=== PATIENT | female | born 1990 | race Caucasian/White ===

== ENCOUNTER 2018-01-26 23:07 | Inpatient (IN) | payer OTHER ==
[~2018-01-26 23:07] MED LIST: Bupivacaine 0.25% 10 ML SDV ONE
[2018-01-26] MEDS ORDERED: Lactated Ringers 1,000 ML ONE (23:10)
[2018-01-26] MEDS: Lactated Ringers 1,000 ML IV SCH ×2 (23:15→23:55)
[2018-01-26] MEDS ORDERED: fentaNYL 100 MCG/2 ML SDV ONE (23:25)
[2018-01-26] MEDS ORDERED: Nalbuphine 20 MG/1 ML Amp IVPUSH PRN (23:28)
[2018-01-26] MEDS ORDERED: Sodium Chloride 0.9% 10 ML Syringe FLUSH PRN (23:28)
[2018-01-26] MEDS ORDERED: Ampicillin 2 GM in Sodium Chloride 0.9% 100 ML IV ONE (23:28)
[2018-01-26] MEDS ORDERED: Ondansetron 4 MG/2 ML SDV IVPUSH PRN ×2 (23:28→23:44)
[2018-01-26] MEDS ORDERED: Oxytocin/Lactated Ringers 10 UNIT/1,000 ML BAG IV SCH (23:30)
[2018-01-26] MEDS ORDERED: ePHEDrine 50 MG/ML SDV IVPUSH PRN (23:44)
[2018-01-26] MEDS ORDERED: diphenhydrAMINE 50 MG/ML SDV IVPUSH PRN (23:44)
[2018-01-26] MEDS ORDERED: fentaNYL 100 MCG/2 ML SDV EPIDUR PRN (23:44)
[2018-01-26] MEDS ORDERED: Bupivacaine/fentaNYL/NS 100 ML Bag EPIDUR SCH (23:45)
[2018-01-27] MEDS ORDERED: Lidocaine 1% 50 ML MDV ONE (00:09)
[2018-01-27] MEDS ORDERED: Lidocaine 1% 10 ML MDV INJECT ONE (00:14)
[2018-01-27] MEDS ORDERED: Carboprost Tromethamine 250 MCG/1 ML Amp ONE (00:18)
--- NOTE | 2018-01-27 00:20 | PCM.PREANE ---
Preanesthetic Assessment - Procedure Proposed Procedure: Epidural - Anesthesia/Transfusion/Family Hx Anesthesia History: Prior Anesthesia Without Reaction Family History of Anesthesia Reaction: No Transfusion History: No Prior Transfusion(s) - Review of Systems General: No Symptoms Pulmonary: No Symptoms Cardiovascular: No Symptoms Gastrointestinal: No Symptoms Neurological: No Symptoms Other: Reports: None - Physical Assessment O2 Sat by Pulse Oximetry: 98 Respiratory Rate: 17 Vital Signs: Last Vital Signs Temp 36.6 C 01/26/18 23:28 Pulse 71 01/26/18 23:28 Resp 17 01/26/18 23:28 BP 141/88 H 01/26/18 23:28 Pulse Ox Height: 1.65 m Weight: 68.946 kg ASA Class: 2 Mental Status: Alert & Oriented x3 Airway Class: Mallampati = 1 Dentition: Reports: Normal Dentition Thyro-Mental Finger Breadths: 3 Mouth Opening Finger Breadths: 3 ROM/Head Extension: Full Lungs: Clear to Auscultation, Normal Respiratory Effort Cardiovascular: Regular Rate, Regular Rhythm - Lab Values: Laboratory Last Values WBC 12.22 K/mm3 (3.98-10.04) H 01/26/18 23:28 RBC 3.90 M/mm3 (3.98-5.22) L 01/26/18 23:28 Hgb 12.3 gm/L (11.2-15.7) 01/26/18 23:28 Hct 35.4 % (34.1-44.9) 01/26/18 23:28 MCV 90.8 fl (79.4-94.8) 01/26/18 23: MCH 31.5 pg (25.6-32.2) 01/26/18 23: MCHC 34.7 g/dl (32.2-35.5) 01/26/18 23:28 RDW Std Deviation 39.5 fL (36.4-46.3) 01/26/18 23: Plt Count 177 K/mm3 (182-369) L 01/26/18 23:28 MPV 11.6 fl (9.4-12.3) 01/26/18 23:28 Neut % (Auto) 66.8 % (34.0-71.1) 01/26/18 23: Lymph % (Auto) 22.8 % (19.3-51.7) 01/26/18 23:28 [place] % (Auto) 9.5 % (4.7-12.5) 01/26/18 23:28 Eos % (Auto) 0.4 (0.7-5.8) L 01/26/18 23:28 Baso % (Auto) 0.2 % (0.1-1.2) 01/26/18 23:28 Neut # (Auto) 8.16 K/mm3 (1.56-6.13) H 01/26/18 23:28 Lymph # (Auto) 2.79 K/mm3 (1.18-3.74) 01/26/18 23:28 [place] # (Auto) 1.16 K/mm3 (0.24-0.36) H 01/26/18 23:28 Eos # (Auto) 0.05 K/mm3 (0.04-0.36) 01/26/18 23:28 Baso # (Auto) 0.02 K/mm3 (0.01-0.08) 01/26/18 23:28 - Allergies Allergies/Adverse Reactions: Allergies Allergy/AdvReac Type Severity Reaction Status Date / Time ibuprofen Allergy Joint Verified 01/26/18 23:25 Pain/swelling - Acknowledgements Anesthesia Type Planned: Epidural Pt an Appropriate Candidate for the Planned Anesthesia: Yes Alternatives and Risks of Anesthesia Discussed w Pt/Guardian: Yes Pt/Guardian Understands and Agrees with Anesthesia Plan: Yes PreAnesthesia Questionnaire - Past Health History Medical/Surgical History: Denies Medical/Surgical History Respiratory History: Reports: Asthma, Other (See Below) Other Respiratory History: pt states she has a hx of asthma but has not used an inhaler for years [employer] History: Reports: - Infectious Disease History Infectious Disease History: Reports: Chicken Pox - SUBSTANCE USE Smoking Status *Q: Never Smoker Tobacco Use Within Last Twelve Months: No Second Hand Smoke Exposure: No Days Per Week of Alcohol Use: 0 Recreational Drug Use History: No - HOME MEDS Home Medications: Home Meds Loratadine [Claritin] 10 mg PO DAILY PRN 07/13/14 [History] XIV647/Iron Fumarate/FA/DSS [ 19 Tablet] 1 each PO DAILY 07/13/14 [ History] Acetaminophen [Tylenol] 650 mg PO Q4H PRN #60 tablet 07/17/14 [Rx] Acetaminophen [Tylenol] 650 mg PO Q4H PRN #0 tablet 03/04/16 [Rx] Acetaminophen/HYDROcodone [[place] 325-5 MG] 2 tab PO Q4H PRN #60 tablet 03/04/16 [Rx] Benzocaine/Menthol [Dermoplast Pain Relief [place]] 1 applic TOP ASDIRECTED PRN # 0 canister 03/04/16 [Rx] Docusate Sodium [Colace] 100 mg PO BID PRN #0 cap 03/04/16 [Rx] Witmeka Ciara [Tucks] 1 pad TOP ASDIRECTED PRN #0 pad 03/04/16 [Rx] - CURRENT (IN HOUSE) MEDS Current Meds: Current Medications Diphenhydramine HCl (Benadryl) 25 mg IVPUSH Q6H PRN PRN Reason: Pruritis Ephedrine Sulfate (Ephedrine Sulfate) 5 mg IVPUSH ASDIRECTED PRN PRN Reason: Hypotension Fentanyl (Sublimaze) 100 mcg EPIDUR ONETIME PRN PRN Reason: Pain Fentanyl/Bupivacaine HCl (Fentanyl/Bupivacaine/Ns 2 Mcg-0.125% 100 Ml) 100 ml EPIDUR ASDIRECTED LIZET Ampicillin Sodium 1 gm/ Sodium (Chloride) 100 mls @ 200 mls/hr IV Q4H LIZET Lactated Ringer's (Ringers, Lactated) 1,000 mls @ 100 mls/hr IV ASDIRECTED LIZET Last Admin: 01/26/18 23:55 Dose: 999 mls/hr Oxytocin/Lactated Ringer's (Pitocin In Lr 10 Units/1,000 Ml) 10 unit in 1,000 mls @ 500 mls/hr IV .CONTINUOUS LIZET Last Admin: 01/27/18 00:13 Dose: 500 mls/hr Nalbuphine HCl (Nubain) 10 mg IVPUSH Q2H PRN PRN Reason: Pain (moderate 4-6) Ondansetron HCl (Zofran) 4 mg IVPUSH Q4H PRN PRN Reason: Nausea/Vomiting Ondansetron HCl (Zofran) 4 mg IVPUSH ONETIME PRN PRN Reason: Nausea/Vomiting Sodium Chloride (Saline Flush) 10 ml FLUSH ASDIRECTED PRN PRN Reason: Keep Vein Open Discontinued Medications Fentanyl (Sublimaze) Confirm Administered Dose 100 mcg .ROUTE .STK-MED ONE Stop: 01/26/18 23:26 Last Admin: 01/26/18 23:49 Dose: Not Given Lactated Ringer's (Ringers, Lactated) Confirm Administered Dose 1,000 mls @ as directed .ROUTE .STK-MED ONE Stop: 01/26/18 23:11 Last Admin: 01/26/18 23:49 Dose: Not Given Ampicillin Sodium 2 gm/ Sodium (Chloride) 100 mls @ 200 mls/hr IV ONETIME ONE Stop: 01/26/18 23:57 Last Admin: 01/26/18 23:15 Dose: 200 mls/hr Lidocaine HCl (Xylocaine 1%) Confirm Administered Dose 50 ml .ROUTE .STK-MED ONE Stop: 01/27/18 00:10 Lidocaine HCl (Xylocaine 1%) 10 ml INJECT ONETIME ONE Stop: 01/27/18 00:15
--- NOTE | 2018-01-27 00:41 | PCM.LDHP ---
L&D History of Present Illness - General Date of Service: 01/27/18 Admit Problem/Dx: Patient Status Order with Admit Dx/Problem 01/26/18 23:29 Patient Status [ADT] Routine Admission Diagnosis/Problem Admission Diagnosis/Problem 01/27/18 00:36 27 yo presented to labor and delivery at 38 weeks 4 days with SROM at home with clear fluid. Contractions for about one hour. Normal movement. no vaginal bleeding. GBS positive B negative Source of Information: Patient History Limitations: Reports: No Limitations - History of Present Illness Location, : Reports: Abdomen Quality: Reports: Pressure Severity: Severe Pain Score: 10 Improves with: Reports: None Worsens with: Reports: None Associated Symptoms: Reports: vaginal fluid. Denies: vaginal bleeding - Related Data Allergies/Adverse Reactions: Allergies Allergy/AdvReac Type Severity Reaction Status Date / Time ibuprofen Allergy Joint Verified 01/26/18 23:25 Pain/swelling Home Medications: Home Meds Loratadine [Claritin] 10 mg PO DAILY PRN 07/13/14 [History] HSV604/Iron Fumarate/FA/DSS [ 19 Tablet] 1 each PO DAILY 07/13/14 [ History] Acetaminophen [Tylenol] 650 mg PO Q4H PRN #60 tablet 07/17/14 [Rx] Acetaminophen [Tylenol] 650 mg PO Q4H PRN #0 tablet 03/04/16 [Rx] Acetaminophen/HYDROcodone [[place] 325-5 MG] 2 tab PO Q4H PRN #60 tablet 03/04/16 [Rx] Benzocaine/Menthol [Dermoplast Pain Relief [place]] 1 applic TOP ASDIRECTED PRN # 0 canister 03/04/16 [Rx] Docusate Sodium [Colace] 100 mg PO BID PRN #0 cap 03/04/16 [Rx] Witch Ciara [Tucks] 1 pad TOP ASDIRECTED PRN #0 pad 03/04/16 [Rx] Past Medical History - Past Health History Medical/Surgical History: Denies Medical/Surgical History Respiratory History: Reports: Asthma, Other (See Below) Other Respiratory History: pt states she has a hx of asthma but has not used an inhaler for years [employer] History: Reports: - Infectious Disease History Infectious Disease History: Reports: Chicken Pox Social & Family History - Tobacco Use Smoking Status *Q: Never Smoker Second Hand Smoke Exposure: No - Alcohol Use Days Per Week of Alcohol Use: 0 - Recreational Drug Use Recreational Drug Use: No - Living Situation & Occupation Living situation: Reports: H&P Review of Systems - Review of Systems: Review Of Systems: See Below General: Reports: No Symptoms HEENT: Reports: No Symptoms Pulmonary: Reports: No Symptoms Cardiovascular: Reports: No Symptoms Gastrointestinal: Reports: No Symptoms Genitourinary: Reports: No Symptoms Musculoskeletal: Reports: No Symptoms Skin: Reports: No Symptoms Psychiatric: Reports: No Symptoms Neurological: Reports: No Symptoms Hematologic/Lymphatic: Reports: No Symptoms Immunologic: Reports: No Symptoms L&D Exam - Exam Exam: See Below - Vital Signs Vital Signs: Last Vital Signs Temp 36.6 C 01/26/18 23:28 Pulse 71 01/26/18 23:28 Resp 17 01/27/18 00:20 BP 141/88 H 01/26/18 23:28 Pulse Ox 98 01/27/18 00:20 Weight: 68.946 kg - OB Specific Contraction Intensity: Strong Movement: Active Heart Tones: Present Heart Tones per Min: 130 Heart Rate (FHR) Variability: Moderate (6-25 bmp) Presentation: Vertex Estimated Weight: 3500 - Sánchez Score Sánchez Score Cervix Position: Anterior Sánchez Score Consistency: Soft Sánchez Score Effacement: >80% Sánchez Score Dilation: > 5 cm Sánchez Score Infant's Station: +1, +2 Sánchez Score Total: 13 - Exam General: Alert, Oriented GI/Abdominal Exam: Normal Bowel Sounds Genitourinary: Normal external exam Extremities: No Pedal Edema Skin: Warm, Dry, Intact Psychiatric: Alert - Patient Data Lab Results Last 24 hrs: Laboratory Results - last 24 hr 01/26/18 Range/Units 23:28 WBC 12.22 H (3.98-10.04) K/mm3 RBC 3.90 L (3.98-5.22) M/mm3 Hgb 12.3 (11.2-15.7) gm/L Hct 35.4 (34.1-44.9) % MCV 90.8 (79.4-94.8) fl MCH 31.5 (25.6-32.2) pg MCHC 34.7 (32.2-35.5) g/dl RDW Std Deviation 39.5 (36.4-46.3) fL Plt Count 177 L (182-369) K/mm3 MPV 11.6 (9.4-12.3) fl Neut % (Auto) 66.8 (34.0-71.1) % Lymph % (Auto) 22.8 (19.3-51.7) % [place] % (Auto) 9.5 (4.7-12.5) % Eos % (Auto) 0.4 L (0.7-5.8) Baso % (Auto) 0.2 (0.1-1.2) % Neut # (Auto) 8.16 H (1.56-6.13) K/mm3 Lymph # (Auto) 2.79 (1.18-3.74) K/mm3 [place] # (Auto) 1.16 H (0.24-0.36) K/mm3 Eos # (Auto) 0.05 (0.04-0.36) K/mm3 Baso # (Auto) 0.02 (0.01-0.08) K/mm3 Result Diagrams: 01/26/18 23:28 - Problem List (1) Normal labor SNOMED Code(s): 42955570 ICD Code: O80 - ENCOUNTER FOR FULL-TERM UNCOMPLICATED DELIVERY; Z37.9 - OUTCOME OF DELIVERY, UNSPECIFIED Status: Acute Current Visit: No Problem List Initiated/Reviewed/Updated: Yes Orders Last 24hrs: Active Orders 24 hr Category Date Time Status Patient Status [ADT] Routine ADT 01/26/18 23:29 Active Activity as Tolerated [RC] PFP Care 01/26/18 23:28 Active Communication Order [RC] ASDIRECTED Care 01/26/18 23:28 Active Heart Tones [RC] ASDIRECTED Care 01/26/18 23:29 Active Notify Provider [RC] ASDIRECTED Care 01/26/18 23:44 Active Notify Provider [RC] PFP Care 01/26/18 23:28 Active Notify Provider [RC] PRN Care 01/26/18 23:28 Active Peripheral IV Care [RC] . DIRECTED Care 01/26/18 23:29 Active Pump Management, Intrathecal [RC] ASDIRECTED Care 01/26/18 23:29 Active Vital Signs [RC] PER UNIT ROUTINE Care 01/26/18 23:28 Active Ampicillin 1 gm Med 02/26/18 03:30 Active Sodium Chloride 0.9% [Normal Saline] 100 ml IV Q4H Bupivacaine/fentaNYL/NS [fentaNYL/Bupivacaine/NS 2 MCG- Med 01/26/18 23:45 Active 0.125% 100 ML] 100 ml EPIDUR ASDIRECTED Lactated Ringers [Ringers, Lactated] 1,000 ml Med 01/26/18 23:30 Active IV ASDIRECTED Nalbuphine [Nubain] Med 01/26/18 23:28 Active 10 mg IVPUSH Q2H PRN Ondansetron [Zofran] Med 01/26/18 23:44 Active 4 mg IVPUSH ONETIME PRN Ondansetron [Zofran] Med 01/26/18 23:28 Active 4 mg IVPUSH Q4H PRN Oxytocin/Lactated Ringers [Pitocin in LR 10 Units/1,000 Med 01/26/18 23:30 Active ML] 10 unit in 1,000 ml IV .CONTINUOUS Sodium Chloride 0.9% [Saline Flush] Med 01/26/18 23:28 Active 10 ml FLUSH ASDIRECTED PRN diphenhydrAMINE [Benadryl] Med 01/26/18 23:44 Active 25 mg IVPUSH Q6H PRN ePHEDrine [ePHEDrine Sulfate] [facility] [place] 01/26/18 23:44 Active 5 mg IVPUSH ASDIRECTED PRN fentaNYL [Sublimaze] Med 01/26/18 23:44 Active 100 mcg EPIDUR ONETIME PRN Electronic Heart Tones Ext w TOCO [WOMSER] Oth 01/26/18 23:28 Ordered Routine Electronic Heart Tones Internal [WOMSER] Per Unit Ot 01/26/18 23:28 Ordered Routine Peripheral IV Insertion Adult [OM.PC] Routine Oth 01/26/18 23:28 Ordered Resuscitation Status Routine Resus Stat 01/26/18 23:28 Ordered Medication Orders Diphenhydramine HCl (Benadryl) 25 mg IVPUSH Q6H PRN PRN Reason: Pruritis Ephedrine Sulfate (Ephedrine Sulfate) 5 mg IVPUSH ASDIRECTED PRN PRN Reason: Hypotension Fentanyl (Sublimaze) 100 mcg EPIDUR ONETIME PRN PRN Reason: Pain Last Admin: 01/27/18 00:29 Dose: 100 mcg Fentanyl/Bupivacaine HCl (Fentanyl/Bupivacaine/Ns 2 Mcg-0.125% 100 Ml) 100 ml EPIDUR ASDIRECTED LIZET Ampicillin Sodium 1 gm/ Sodium (Chloride) 100 mls @ 200 mls/hr IV Q4H LIZET Lactated Ringer's (Ringers, Lactated) 1,000 mls @ 100 mls/hr IV ASDIRECTED LIZET Last Admin: 01/26/18 23:55 Dose: 999 mls/hr Infusion: 01/26/18 23:55 Dose: 999 mls/hr Admin: 01/26/18 23:15 Dose: 999 mls/hr Oxytocin/Lactated Ringer's (Pitocin In Lr 10 Units/1,000 Ml) 10 unit in 1,000 mls @ 500 mls/hr IV .CONTINUOUS LIZET Last Admin: 01/27/18 00:13 Dose: 500 mls/hr Nalbuphine HCl (Nubain) 10 mg IVPUSH Q2H PRN PRN Reason: Pain (moderate 4-6) Ondansetron HCl (Zofran) 4 mg IVPUSH Q4H PRN PRN Reason: Nausea/Vomiting Ondansetron HCl (Zofran) 4 mg IVPUSH ONETIME PRN PRN Reason: Nausea/Vomiting Sodium Chloride (Saline Flush) 10 ml FLUSH ASDIRECTED PRN PRN Reason: Keep Vein Open Assessment/Plan Comment:: 27 you at 38 weeks 4 days gestation with SROM at home and active contractions. GBS Positive-Antibiotics started pt prefers epidural.
--- NOTE | 2018-01-27 00:44 | PCM.DEL ---
L & D Note - General Info Date of Service: 01/27/18 Mother's Due Date: 02/05/18 - Delivery Note Labor: Spontaneous Delivery Outcome: Livebirth Infant Delivery Method: Spontaneous Vaginal Delivery-Single Presentation: Vertex Nuchal Cord: Present Anesthesia Type: Epidural Amniotic Fluid Description: Clear Episiotomy Type: None Laceration: 2nd Degree, Vaginal Suture type: Vicryl Suture size: 3-0 Placenta: Intact, Spontaneous Cord: 3 Vessels Estimated Blood Loss: 400 Resuscitation Needed: No : Bulb Syringe Score 1 min: 8 Score 5 min: 9 Post Delivery Events: Hemorrhage (uterine clot evacuated manually) - Patient Data Vitals - Most Recent: Last Vital Signs Temp 36.6 C 01/26/18 23:28 Pulse 71 01/26/18 23:28 Resp 17 01/27/18 00:20 BP 141/88 H 01/26/18 23:28 Pulse Ox 98 01/27/18 00:20 Weight - Most Recent: 68.946 kg I&O - Last 24 Hours: Intake & Output 01/26/18 01/26/18 01/27/18 14:59 22:59 06:59 Intake Total 1400 Balance 1400 Lab Results Last 24 Hours: Laboratory Results - last 24 hr 01/26/18 Range/Units 23:28 WBC 12.22 H (3.98-10.04) K/mm3 RBC 3.90 L (3.98-5.22) M/mm3 Hgb 12.3 (11.2-15.7) gm/L Hct 35.4 (34.1-44.9) % MCV 90.8 (79.4-94.8) fl MCH 31.5 (25.6-32.2) pg MCHC 34.7 (32.2-35.5) g/dl RDW Std Deviation 39.5 (36.4-46.3) fL Plt Count 177 L (182-369) K/mm3 MPV 11.6 (9.4-12.3) fl Neut % (Auto) 66.8 (34.0-71.1) % Lymph % (Auto) 22.8 (19.3-51.7) % [place] % (Auto) 9.5 (4.7-12.5) % Eos % (Auto) 0.4 L (0.7-5.8) Baso % (Auto) 0.2 (0.1-1.2) % Neut # (Auto) 8.16 H (1.56-6.13) K/mm3 Lymph # (Auto) 2.79 (1.18-3.74) K/mm3 [place] # (Auto) 1.16 H (0.24-0.36) K/mm3 Eos # (Auto) 0.05 (0.04-0.36) K/mm3 Baso # (Auto) 0.02 (0.01-0.08) K/mm3 Med Orders - Current: Current Medications Diphenhydramine HCl (Benadryl) 25 mg IVPUSH Q6H PRN PRN Reason: Pruritis Ephedrine Sulfate (Ephedrine Sulfate) 5 mg IVPUSH ASDIRECTED PRN PRN Reason: Hypotension Fentanyl (Sublimaze) 100 mcg EPIDUR ONETIME PRN PRN Reason: Pain Last Admin: 01/27/18 00:29 Dose: 100 mcg Fentanyl/Bupivacaine HCl (Fentanyl/Bupivacaine/Ns 2 Mcg-0.125% 100 Ml) 100 ml EPIDUR ASDIRECTED LIZET Ampicillin Sodium 1 gm/ Sodium (Chloride) 100 mls @ 200 mls/hr IV Q4H LIZET Lactated Ringer's (Ringers, Lactated) 1,000 mls @ 100 mls/hr IV ASDIRECTED LIZET Last Admin: 01/26/18 23:55 Dose: 999 mls/hr Oxytocin/Lactated Ringer's (Pitocin In Lr 10 Units/1,000 Ml) 10 unit in 1,000 mls @ 500 mls/hr IV .CONTINUOUS LIZET Last Admin: 01/27/18 00:13 Dose: 500 mls/hr Nalbuphine HCl (Nubain) 10 mg IVPUSH Q2H PRN PRN Reason: Pain (moderate 4-6) Ondansetron HCl (Zofran) 4 mg IVPUSH Q4H PRN PRN Reason: Nausea/Vomiting Ondansetron HCl (Zofran) 4 mg IVPUSH ONETIME PRN PRN Reason: Nausea/Vomiting Sodium Chloride (Saline Flush) 10 ml FLUSH ASDIRECTED PRN PRN Reason: Keep Vein Open Discontinued Medications Carboprost Tromethamine (Hemabate Ds) Confirm Administered Dose 250 mcg .ROUTE .STK-MED ONE Stop: 01/27/18 00:19 Last Admin: 01/27/18 00:31 Dose: Not Given Fentanyl (Sublimaze) Confirm Administered Dose 100 mcg .ROUTE .STK-MED ONE Stop: 01/26/18 23:26 Last Admin: 01/26/18 23:49 Dose: Not Given Lactated Ringer's (Ringers, Lactated) Confirm Administered Dose 1,000 mls @ as directed .ROUTE .STK-MED ONE Stop: 01/26/18 23:11 Last Admin: 01/26/18 23:49 Dose: Not Given Ampicillin Sodium 2 gm/ Sodium (Chloride) 100 mls @ 200 mls/hr IV ONETIME ONE Stop: 01/26/18 23:57 Last Admin: 01/26/18 23:15 Dose: 200 mls/hr Lidocaine HCl (Xylocaine 1%) Confirm Administered Dose 50 ml .ROUTE .STK-MED ONE Stop: 01/27/18 00:10 Last Admin: 01/27/18 00:31 Dose: Not Given Lidocaine HCl (Xylocaine 1%) 10 ml INJECT ONETIME ONE Stop: 01/27/18 00:15 Last Admin: 01/27/18 00:31 Dose: 10 ml - Problem List & Annotations (1) Normal labor SNOMED Code(s): 90611680 Code(s): O80 - ENCOUNTER FOR FULL-TERM UNCOMPLICATED DELIVERY; Z37.9 - OUTCOME OF DELIVERY, UNSPECIFIED Status: Acute Current Visit: No (2) Vaginal delivery SNOMED Code(s): 980259937 Code(s): O80 - ENCOUNTER FOR FULL-TERM UNCOMPLICATED DELIVERY Status: Acute Current Visit: No - Problem List Review Problem List Initiated/Reviewed/Updated: Yes - My Orders Last 24 Hours: My Active Orders 01/26/18 23:28 Activity as Tolerated [RC] PFP Communication Order [RC] ASDIRECTED Notify Provider [RC] PFP Notify Provider [RC] PRN Vital Signs [RC] PER UNIT ROUTINE Nalbuphine [Nubain] 10 mg IVPUSH Q2H PRN Ondansetron [Zofran] 4 mg IVPUSH Q4H PRN Sodium Chloride 0.9% [Saline Flush] 10 ml FLUSH ASDIRECTED PRN Electronic Heart Tones Ext w TOCO [WOMSER] Routine Electronic Heart Tones Internal [WOMSER] Per Unit Routine Peripheral IV Insertion Adult [OM.PC] Routine Resuscitation Status Routine 01/26/18 23:29 Patient Status [ADT] Routine Heart Tones [RC] ASDIRECTED Peripheral IV Care [RC] . DIRECTED Pump Management, Intrathecal [RC] ASDIRECTED 01/26/18 23:30 Lactated Ringers [Ringers, Lactated] 1,000 ml IV ASDIRECTED Oxytocin/Lactated Ringers [Pitocin in LR 10 Units/1,000 ML] 10 unit in 1,000 ml IV .CONTINUOUS 01/27/18 03:30 Ampicillin 1 gm Sodium Chloride 0.9% [Normal Saline] 100 ml IV Q4H - Plan Plan:: Vaginal delivery 8lb 1ounce male.
[2018-01-27] MEDS ORDERED: Docusate Sodium 100 MG Cap PO PRN (00:46)
[2018-01-27] MEDS ORDERED: Benzocaine/Menthol 20%-0.5% Spray 56 GM Canister TOP PRN (00:46)
[2018-01-27] MEDS ORDERED: Witch Hazel Medicated Pads 100/Jar TOP PRN (00:46)
[2018-01-27] MEDS ORDERED: Lanolin 100% Cream 7 GM Tube TOP PRN (00:46)
[2018-01-27] MEDS ORDERED: Ampicillin 1 GM in Sodium Chloride 0.9% 100 ML IV SCH (03:30)
[2018-01-27] MEDS: Acetaminophen 325 MG Tab PO PRN ×2 (05:18→09:54)
--- NOTE | 2018-01-27 07:32 | PCM48HPAN ---
Post Anesthesia Note - EVALUATION WITHIN 48HRS OF ANESTHETIC Vital Signs in Normal Range: Yes Patient Participated in Evaluation: Yes Respiratory Function Stable: Yes Airway Patent: Yes Cardiovascular Function Stable: Yes Hydration Status Stable: Yes Pain Control Satisfactory: Yes Nausea and Vomiting Control Satisfactory: Yes Mental Status Recovered: Yes Pulse Rate: 65 Resp Rate: 16 Blood Pressure: 124/70
--- NOTE | 2018-01-27 07:55 | PCM.PNPP ---
- General Info Date of Service: 01/27/18 Admission Dx/Problem (Free Text): 27 yo at 8 hours . episode of syncope after delivery in transition to care. This occured while getting up from the toilet. Lasted a few seconds. has felt normal since. Functional Status: Reports: Pain Controlled - Review of Systems General: Reports: No Symptoms HEENT: Reports: No Symptoms Cardiovascular: Reports: No Symptoms Gastrointestinal: Reports: No Symptoms Genitourinary: Reports: No Symptoms - General Info Date of Service: 01/27/18 - Patient Data Vital Signs - Most Recent: Last Vital Signs Temp 37.2 C 01/27/18 03:56 Pulse 65 01/27/18 07:31 Resp 16 01/27/18 07:31 BP 124/70 01/27/18 07:31 Pulse Ox 98 01/27/18 03:32 Weight - Most Recent: 68.946 kg I&O - Last 24 Hours: Intake & Output 01/26/18 01/27/18 01/27/18 22:59 06:59 14:59 Intake Total 2400 Balance 2400 Lab Results - Last 24 Hours: Laboratory Results - last 24 hr 01/26/18 Range/Units 23:28 WBC 12.22 H (3.98-10.04) K/mm3 RBC 3.90 L (3.98-5.22) M/mm3 Hgb 12.3 (11.2-15.7) gm/L Hct 35.4 (34.1-44.9) % MCV 90.8 (79.4-94.8) fl MCH 31.5 (25.6-32.2) pg MCHC 34.7 (32.2-35.5) g/dl RDW Std Deviation 39.5 (36.4-46.3) fL Plt Count 177 L (182-369) K/mm3 MPV 11.6 (9.4-12.3) fl Neut % (Auto) 66.8 (34.0-71.1) % Lymph % (Auto) 22.8 (19.3-51.7) % [place] % (Auto) 9.5 (4.7-12.5) % Eos % (Auto) 0.4 L (0.7-5.8) Baso % (Auto) 0.2 (0.1-1.2) % Neut # (Auto) 8.16 H (1.56-6.13) K/mm3 Lymph # (Auto) 2.79 (1.18-3.74) K/mm3 [place] # (Auto) 1.16 H (0.24-0.36) K/mm3 Eos # (Auto) 0.05 (0.04-0.36) K/mm3 Baso # (Auto) 0.02 (0.01-0.08) K/mm3 Med Orders - Current: Current Medications Acetaminophen (Tylenol) 650 mg PO Q4H PRN PRN Reason: mild pain or fever Last Admin: 01/27/18 05:18 Dose: 650 mg Benzocaine/Menthol (Dermoplast Pain Relief [place]) 0 gm TOP ASDIRECTED PRN PRN Reason: Perineal Comfort Measure Last Admin: 01/27/18 02:21 Dose: 1 applic Docusate Sodium (Colace) 100 mg PO BID PRN PRN Reason: Constipation Emollient Ointment (Lansinoh Hpa) 0 gm TOP ASDIRECTED PRN PRN Reason: Sore Nipples Witch Ciara (Tucks) 1 pad TOP ASDIRECTED PRN PRN Reason: Hemorrhoid pain Last Admin: 01/27/18 02:21 Dose: 1 applic Discontinued Medications Carboprost Tromethamine (Hemabate Ds) Confirm Administered Dose 250 mcg .ROUTE .STK-MED ONE Stop: 01/27/18 00:19 Last Admin: 01/27/18 00:31 Dose: Not Given Diphenhydramine HCl (Benadryl) 25 mg IVPUSH Q6H PRN PRN Reason: Pruritis Ephedrine Sulfate (Ephedrine Sulfate) 5 mg IVPUSH ASDIRECTED PRN PRN Reason: Hypotension Fentanyl (Sublimaze) Confirm Administered Dose 100 mcg .ROUTE .STK-MED ONE Stop: 01/26/18 23:26 Last Admin: 01/26/18 23:49 Dose: Not Given Fentanyl (Sublimaze) 100 mcg EPIDUR ONETIME PRN PRN Reason: Pain Last Admin: 01/27/18 00:29 Dose: 100 mcg Fentanyl/Bupivacaine HCl (Fentanyl/Bupivacaine/Ns 2 Mcg-0.125% 100 Ml) 100 ml EPIDUR ASDIRECTED LIZET Lactated Ringer's (Ringers, Lactated) Confirm Administered Dose 1,000 mls @ as directed .ROUTE .STK-MED ONE Stop: 01/26/18 23:11 Last Admin: 01/26/18 23:49 Dose: Not Given Ampicillin Sodium 2 gm/ Sodium (Chloride) 100 mls @ 200 mls/hr IV ONETIME ONE Stop: 01/26/18 23:57 Last Admin: 01/26/18 23:15 Dose: 200 mls/hr Ampicillin Sodium 1 gm/ Sodium (Chloride) 100 mls @ 200 mls/hr IV Q4H LIZET Lactated Ringer's (Ringers, Lactated) 1,000 mls @ 100 mls/hr IV ASDIRECTED LIZET Last Admin: 01/26/18 23:55 Dose: 999 mls/hr Oxytocin/Lactated Ringer's (Pitocin In Lr 10 Units/1,000 Ml) 10 unit in 1,000 mls @ 500 mls/hr IV .CONTINUOUS LIZET Last Admin: 01/27/18 00:13 Dose: 500 mls/hr Lidocaine HCl (Xylocaine 1%) Confirm Administered Dose 50 ml .ROUTE .STK-MED ONE Stop: 01/27/18 00:10 Last Admin: 01/27/18 00:31 Dose: Not Given Lidocaine HCl (Xylocaine 1%) 10 ml INJECT ONETIME ONE Stop: 01/27/18 00:15 Last Admin: 01/27/18 00:31 Dose: 10 ml Nalbuphine HCl (Nubain) 10 mg IVPUSH Q2H PRN PRN Reason: Pain (moderate 4-6) Ondansetron HCl (Zofran) 4 mg IVPUSH Q4H PRN PRN Reason: Nausea/Vomiting Ondansetron HCl (Zofran) 4 mg IVPUSH ONETIME PRN PRN Reason: Nausea/Vomiting Sodium Chloride (Saline Flush) 10 ml FLUSH ASDIRECTED PRN PRN Reason: Keep Vein Open - Interaction Disposition, : in Room with Family Interaction: Holding Infant Feeding: Breastfed ; Nursed Well Support Person: - Recovery Exam Fundal Tone: Firm Fundal Level: At Umbilicus Fundal Placement: Midline Lochia Amount: Small, Moderate Lochia Color: Rubra/Red Perineum Description: Edematous, Other (see below) Other Perinuem Description: second degree with repair - Exam General: Alert, Oriented Extremities: No Pedal Edema - Problem List & Annotations (1) Normal labor SNOMED Code(s): 62123565 Code(s): O80 - ENCOUNTER FOR FULL-TERM UNCOMPLICATED DELIVERY; Z37.9 - OUTCOME OF DELIVERY, UNSPECIFIED Status: Acute Current Visit: No (2) Vaginal delivery SNOMED Code(s): 980800612 Code(s): O80 - ENCOUNTER FOR FULL-TERM UNCOMPLICATED DELIVERY Status: Acute Current Visit: No - Problem List Review Problem List Initiated/Reviewed/Updated: Yes - My Orders Last 24 Hours: My Active Orders 01/26/18 23:28 Resuscitation Status Routine 01/26/18 23:29 Heart Tones [RC] ASDIRECTED Peripheral IV Care [RC] . DIRECTED 01/27/18 00:46 Acetaminophen [Tylenol] 650 mg PO Q4H PRN Benzocaine/Menthol [Dermoplast Pain Relief [place]] See Dose Instructions TOP ASDIRECTED PRN Docusate Sodium [Colace] 100 mg PO BID PRN Lanolin [Lansinoh HPA] See Dose Instructions TOP ASDIRECTED PRN Witch Ciara [Tucks] 1 pad TOP ASDIRECTED PRN 01/27/18 00:50 Activity as Tolerated [RC] PER UNIT ROUTINE Vital Signs [RC] 12,20,04 Assess Lochia [WOMSER] Per Unit Routine Assess Uterine Involution [WOMSER] Per Unit Routine Breast Pump [WOMSER] Per Unit Routine Medication Administration Instruction [OM.PC] Routine Perineal Care [OM.PC] Per Unit Routine Sitz Bath [OM.PC] Per Unit Routine 01/27/18 01:00 Heat Therapy [OM.PC] PRN 01/27/18 06:25 RHOGAM, [RHIG WORKUP, ] [BBK] Routine 01/27/18 Breakfast Regular Diet [DIET] 01/28/18 01:00 Heat Therapy [OM.PC] PRN 01/29/18 06:00 HEMOGLOBIN/HEMATOCRIT,HH [HEME] Routine - Plan Plan:: Vaginal delivery 8lb 1ounce male. 01/27/18 27 yo at 8 hours episode of syncope likely vasovagal. Hemoglobin is pending. she did have a mild hemorrhage. continue support.
[2018-01-27] MEDS: Acetaminophen/HYDROcodone 325-5 MG Tab PO PRN ×2 (14:33→18:40)
[2018-01-28] MEDS: Acetaminophen/HYDROcodone 325-5 MG Tab PO PRN (02:51)
--- NOTE | 2018-01-28 10:48 | PCM.PNPP ---
- General Info Date of Service: 01/28/18 Admission Dx/Problem (Free Text): 27 yo female at PPD #1 s/p spontaneous vaginal delivery with 1st degree laceration. is successful. pain controlled with hydrocodone. ambulating well. has not had BM-states no urge. Functional Status: Reports: Pain Controlled, Tolerating Diet, Ambulating, Urinating - Review of Systems General: Reports: No Symptoms Gastrointestinal: Reports: No Symptoms Genitourinary: Reports: No Symptoms Psychiatric: Reports: No Symptoms - General Info Date of Service: 01/28/18 - Patient Data Vital Signs - Most Recent: Last Vital Signs Temp 36.5 C 01/28/18 08:24 Pulse 77 01/28/18 08:24 Resp 16 01/28/18 08:30 BP 138/104 H 01/28/18 08:24 Pulse Ox 98 01/28/18 08:24 Weight - Most Recent: 68.946 kg I&O - Last 24 Hours: Intake & Output 01/27/18 01/28/18 01/28/18 22:59 06:59 14:59 Intake Total 480 120 Balance 480 120 Med Orders - Current: Current Medications Acetaminophen (Tylenol) 650 mg PO Q4H PRN PRN Reason: mild pain or fever Last Admin: 01/27/18 09:54 Dose: 650 mg Hydrocodone Bitart/Acetaminophen ([place] 325-5 Mg) 2 tab PO Q4H PRN PRN Reason: Pain Last Admin: 01/28/18 02:51 Dose: 2 tab Benzocaine/Menthol (Dermoplast Pain Relief [place]) 0 gm TOP ASDIRECTED PRN PRN Reason: Perineal Comfort Measure Last Admin: 01/27/18 02:21 Dose: 1 applic Docusate Sodium (Colace) 100 mg PO BID PRN PRN Reason: Constipation Emollient Ointment (Lansinoh Hpa) 0 gm TOP ASDIRECTED PRN PRN Reason: Sore Nipples Witch Ciara (Tucks) 1 pad TOP ASDIRECTED PRN PRN Reason: Hemorrhoid pain Last Admin: 01/27/18 02:21 Dose: 1 applic Discontinued Medications Bupivacaine HCl (Sensorcaine-Mpf 0.25%) 10 ml .ROUTE .STK-MED ONE Stop: 01/26/18 22:23 Carboprost Tromethamine (Hemabate Ds) Confirm Administered Dose 250 mcg .ROUTE .STK-MED ONE Stop: 01/27/18 00:19 Last Admin: 01/27/18 00:31 Dose: Not Given Diphenhydramine HCl (Benadryl) 25 mg IVPUSH Q6H PRN PRN Reason: Pruritis Ephedrine Sulfate (Ephedrine Sulfate) 5 mg IVPUSH ASDIRECTED PRN PRN Reason: Hypotension Fentanyl (Sublimaze) Confirm Administered Dose 100 mcg .ROUTE .STK-MED ONE Stop: 01/26/18 23:26 Last Admin: 01/26/18 23:49 Dose: Not Given Fentanyl (Sublimaze) 100 mcg EPIDUR ONETIME PRN PRN Reason: Pain Last Admin: 01/27/18 00:29 Dose: 100 mcg Fentanyl/Bupivacaine HCl (Fentanyl/Bupivacaine/Ns 2 Mcg-0.125% 100 Ml) 100 ml EPIDUR ASDIRECTED [facility] Lactated Ringer's (Ringers, Lactated) Confirm Administered Dose 1,000 mls @ as directed .ROUTE .STK-MED ONE Stop: 01/26/18 23:11 Last Admin: 01/26/18 23:49 Dose: Not Given Ampicillin Sodium 2 gm/ Sodium (Chloride) 100 mls @ 200 mls/hr IV ONETIME ONE Stop: 01/26/18 23:57 Last Admin: 01/26/18 23:15 Dose: 200 mls/hr Ampicillin Sodium 1 gm/ Sodium (Chloride) 100 mls @ 200 mls/hr IV Q4H LIZET Lactated Ringer's (Ringers, Lactated) 1,000 mls @ 100 mls/hr IV ASDIRECTED LIZET Last Admin: 01/26/18 23:55 Dose: 999 mls/hr Oxytocin/Lactated Ringer's (Pitocin In Lr 10 Units/1,000 Ml) 10 unit in 1,000 mls @ 500 mls/hr IV .CONTINUOUS LIZET Last Admin: 01/27/18 00:13 Dose: 500 mls/hr Lidocaine HCl (Xylocaine 1%) Confirm Administered Dose 50 ml .ROUTE .STK-MED ONE Stop: 01/27/18 00:10 Last Admin: 01/27/18 00:31 Dose: Not Given Lidocaine HCl (Xylocaine 1%) 10 ml INJECT ONETIME ONE Stop: 01/27/18 00:15 Last Admin: 01/27/18 00:31 Dose: 10 ml Nalbuphine HCl (Nubain) 10 mg IVPUSH Q2H PRN PRN Reason: Pain (moderate 4-6) Ondansetron HCl (Zofran) 4 mg IVPUSH Q4H PRN PRN Reason: Nausea/Vomiting Ondansetron HCl (Zofran) 4 mg IVPUSH ONETIME PRN PRN Reason: Nausea/Vomiting Sodium Chloride (Saline Flush) 10 ml FLUSH ASDIRECTED PRN PRN Reason: Keep Vein Open - Interaction Disposition, : Plac[place] in Room with Family Infant Interaction: Holding Infant Infant Feeding: Breastfed ; Nursed Well Support Person: - Recovery Exam Fundal Tone: Firm Fundal Level: At Umbilicus Fundal Placement: Midline Lochia Amount: Small Lochia Color: Rubra/Red Perineum Description: Other (see below) Other Perinuem Description: 2 degree, using k pad, tucks and dermaplast Episiotomy/Laceration: Approximated Bladder Status: Voiding Urinary Elimination: Voided - Exam Extremities: No Pedal Edema Skin: Warm, Dry - Problem List & Annotations (1) Normal labor SNOMED Code(s): 65360603 Code(s): O80 - ENCOUNTER FOR FULL-TERM UNCOMPLICATED DELIVERY; Z37.9 - OUTCOME OF DELIVERY, UNSPECIFIED Status: Acute Current Visit: No (2) Vaginal delivery SNOMED Code(s): 587751432 Code(s): O80 - ENCOUNTER FOR FULL-TERM UNCOMPLICATED DELIVERY Status: Acute Current Visit: No - Problem List Review Problem List Initiated/Reviewed/Updated: Yes - My Orders Last 24 Hours: My Active Orders 01/27/18 14:18 Acetaminophen/HYDROcodone [[place] 325-5 MG] 2 tab PO Q4H PRN 01/28/18 01:00 Heat Therapy [OM.PC] PRN 01/29/18 06:00 HEMOGLOBIN/HEMATOCRIT,HH [HEME] Routine - Plan Plan:: Vaginal delivery 8lb 1ounce male. 01/27/18 27 yo at 8 hours episode of syncope likely vasovagal. Hemoglobin is pending. she did have a mild hemorrhage. continue support. 01/28/18 27 yo female at PPD #1 s/p spontaneous vaginal delivery with 1st degree laceration continue routine care anticipate d/c to home on 01/29/18
[2018-01-28] MEDS: Acetaminophen 325 MG Tab PO PRN (18:04)
--- NOTE | 2018-01-29 08:32 | PCM.DCSUM1 ---
Discharge Summary - Hospital Course Free Text/Narrative:: 27 yo at PPD #2 s/p normal vaginal delivery. well pain controlled. Hgb 10 - Discharge Data Discharge Date: 01/29/18 Discharge Disposition: Home, Self-Care 01 Condition: Good - Discharge Diagnosis/Problem(s) (1) Normal labor SNOMED Code(s): 46600207 ICD Code: O80 - ENCOUNTER FOR FULL-TERM UNCOMPLICATED DELIVERY; Z37.9 - OUTCOME OF DELIVERY, UNSPECIFIED Status: Acute Current Visit: No (2) Vaginal delivery SNOMED Code(s): 508768799 ICD Code: O80 - ENCOUNTER FOR FULL-TERM UNCOMPLICATED DELIVERY Status: Acute Current Visit: No - Patient Instructions Diet: Heart Healthy Diet, Usual Diet as Tolerated Activity: Apply Ice, As Tolerated Driving: May Drive Today Showering/Bathing: May Shower Notify Provider of: Fever, Increased Pain, Swelling and Redness, Drainage, Nausea and/or Vomiting - Discharge Plan Home Medications: Home Meds Loratadine [Claritin] 10 mg PO DAILY PRN 07/13/14 [History] [id number]/Iron Fumarate/FA/DSS [ 19 Tablet] 1 each PO DAILY 07/13/14 [ History] Witch Ciara [Tucks] 1 pad TOP ASDIRECTED PRN #0 pad 03/04/16 [Rx] Acetaminophen [Tylenol] 650 mg PO Q4H PRN tablet 01/29/18 [Rx] Benzocaine/Menthol [Dermoplast Pain Relief [place]] 1 applic TOP ASDIRECTED PRN canister 01/29/18 [Rx] Docusate Sodium [Colace] 100 mg PO BID PRN cap 01/29/18 [Rx] Lanolin [Lansinoh HPA] 1 applic TOP ASDIRECTED PRN tube 01/29/18 [Rx] Patient Handouts: , Home Care Instructions for Mom Referrals: Marlin Frausto MD [Primary Care Provider] - (6-8 weeks routine visit) - Discharge Summary/Plan Comment DC Time >30 min.: No - General Info Date of Service: 01/29/18 Functional Status: Reports: Pain Controlled, Tolerating Diet - Review of Systems General: Reports: No Symptoms Gastrointestinal: Reports: No Symptoms Genitourinary: Reports: No Symptoms Neurological: Reports: No Symptoms - Patient Data Vitals - Most Recent: Last Vital Signs Temp 36.6 C 01/29/18 03:50 Pulse 64 01/29/18 03:50 Resp 18 01/29/18 03:50 BP 122/74 01/29/18 03:50 Pulse Ox 98 01/29/18 03:50 Weight - Most Recent: 68.946 kg I&O - Last 24 hours: Intake & Output 01/28/18 01/29/18 01/29/18 22:59 06:59 14:59 Intake Total 440 Balance 440 Lab Results - Last 24 hrs: Laboratory Results - last 24 hr 01/28/18 Range/Units 12:00 Hgb 10.3 L (11.2-15.7) gm/L Hct 30.8 L (34.1-44.9) % Med Orders - Current: Current Medications Acetaminophen (Tylenol) 650 mg PO Q4H PRN PRN Reason: mild pain or fever Last Admin: 01/28/18 18:04 Dose: 650 mg Hydrocodone Bitart/Acetaminophen ([place] 325-5 Mg) 2 tab PO Q4H PRN PRN Reason: Pain Last Admin: 01/28/18 02:51 Dose: 2 tab Benzocaine/Menthol (Dermoplast Pain Relief [place]) 0 gm TOP ASDIRECTED PRN PRN Reason: Perineal Comfort Measure Last Admin: 01/27/18 02:21 Dose: 1 applic Docusate Sodium (Colace) 100 mg PO BID PRN PRN Reason: Constipation Emollient Ointment (Lansinoh Hpa) 0 gm TOP ASDIRECTED PRN PRN Reason: Sore Nipples Witch Ciara (Tucks) 1 pad TOP ASDIRECTED PRN PRN Reason: Hemorrhoid pain Last Admin: 01/27/18 02:21 Dose: 1 applic Discontinued Medications Bupivacaine HCl (Sensorcaine-Mpf 0.25%) 10 ml .ROUTE .STK-MED ONE Stop: 01/26/18 22:23 Carboprost Tromethamine (Hemabate Ds) Confirm Administered Dose 250 mcg .ROUTE .STK-MED ONE Stop: 01/27/18 00:19 Last Admin: 01/27/18 00:31 Dose: Not Given Diphenhydramine HCl (Benadryl) 25 mg IVPUSH Q6H PRN PRN Reason: Pruritis Ephedrine Sulfate (Ephedrine Sulfate) 5 mg IVPUSH ASDIRECTED PRN PRN Reason: Hypotension Fentanyl (Sublimaze) Confirm Administered Dose 100 mcg .ROUTE .[facility] ONE Stop: 01/26/18 23:26 Last Admin: 01/26/18 23:49 Dose: Not Given Fentanyl (Sublimaze) 100 mcg EPIDUR ONETIME PRN PRN Reason: Pain Last Admin: 01/27/18 00:29 Dose: 100 mcg Fentanyl/Bupivacaine HCl (Fentanyl/Bupivacaine/Ns 2 Mcg-0.125% 100 Ml) 100 ml EPIDUR ASDIRECTED [facility] Lactated Ringer's (Ringers, Lactated) Confirm Administered Dose 1,000 mls @ as directed [facility] Stop: 01/26/18 23:11 Last Admin: 01/26/18 23:49 Dose: Not Given Ampicillin Sodium 2 gm/ Sodium (Chloride) 100 mls @ 200 mls/hr IV ONETIME ONE Stop: 01/26/18 23:57 Last Admin: 01/26/18 23:15 Dose: 200 mls/hr Ampicillin Sodium 1 gm/ Sodium (Chloride) 100 mls @ 200 mls/hr IV Q4H LIZET Lactated Ringer's (Ringers, Lactated) 1,000 mls @ 100 mls/hr IV ASDIRECTED [facility] Last Admin: 01/26/18 23:55 Dose: 999 mls/hr Oxytocin/Lactated Ringer's (Pitocin In Lr 10 Units/1,000 Ml) 10 unit in 1,000 mls @ 500 mls/hr IV .CONTINUOUS [facility] Last Admin: 01/27/18 00:13 Dose: 500 mls/hr Lidocaine HCl (Xylocaine 1%) Confirm Administered Dose 50 ml .ROUTE .[facility] ONE Stop: 01/27/18 00:10 Last Admin: 01/27/18 00:31 Dose: Not Given Lidocaine HCl (Xylocaine 1%) 10 ml INJECT ONETIME ONE Stop: 01/27/18 00:15 Last Admin: 01/27/18 00:31 Dose: 10 ml Nalbuphine HCl (Nubain) 10 mg IVPUSH Q2H PRN PRN Reason: Pain (moderate 4-6) Ondansetron HCl (Zofran) 4 mg IVPUSH Q4H PRN PRN Reason: Nausea/Vomiting Ondansetron HCl (Zofran) 4 mg IVPUSH ONETIME PRN PRN Reason: Nausea/Vomiting Sodium Chloride (Saline Flush) 10 ml FLUSH ASDIRECTED PRN PRN Reason: Keep Vein Open - Exam General: Reports: Alert, Oriented GI/Abdominal Exam: Normal Bowel Sounds *Q Meaningful Use (DIS) - VTE *Q VTE Criteria *Q: - Stroke *Q Stroke Criteria *Q: - AMI *Q AMI Criteria *Q: - General Info Date of Service: 01/29/18 - Patient Data Vital Signs - Most Recent: Last Vital Signs Temp 36.6 C 01/29/18 03:50 Pulse 64 01/29/18 03:50 Resp 18 01/29/18 03:50 BP 122/74 01/29/18 03:50 Pulse Ox 98 01/29/18 03:50 Weight - Most Recent: 68.946 kg I&O - Last 24 Hours: Intake & Output 01/28/18 01/29/18 01/29/18 22:59 06:59 14:59 Intake Total 440 Balance 440 Lab Results - Last 24 Hours: Laboratory Results - last 24 hr 01/28/18 Range/Units 12:00 Hgb 10.3 L (11.2-15.7) gm/L Hct 30.8 L (34.1-44.9) % Med Orders - Current: Current Medications Acetaminophen (Tylenol) 650 mg PO Q4H PRN PRN Reason: mild pain or fever Last Admin: 01/28/18 18:04 Dose: 650 mg Hydrocodone Bitart/Acetaminophen ([place] 325-5 Mg) 2 tab PO Q4H PRN PRN Reason: Pain Last Admin: 01/28/18 02:51 Dose: 2 tab Benzocaine/Menthol (Dermoplast Pain Relief [place]) 0 gm TOP ASDIRECTED PRN PRN Reason: Perineal Comfort Measure Last Admin: 01/27/18 02:21 Dose: 1 applic Docusate Sodium (Colace) 100 mg PO BID PRN PRN Reason: Constipation Emollient Ointment (Lansinoh Hpa) 0 gm TOP ASDIRECTED PRN PRN Reason: Sore Nipples Witch Ciara (Tucks) 1 pad TOP ASDIRECTED PRN PRN Reason: Hemorrhoid pain Last Admin: 01/27/18 02:21 Dose: 1 applic Discontinued Medications Bupivacaine HCl (Sensorcaine-Mpf 0.25%) 10 ml .ROUTE .STK-MED ONE Stop: 01/26/18 22:23 Carboprost Tromethamine (Hemabate Ds) Confirm Administered Dose 250 mcg .ROUTE .STK-MED ONE Stop: 01/27/18 00:19 Last Admin: 01/27/18 00:31 Dose: Not Given Diphenhydramine HCl (Benadryl) 25 mg IVPUSH Q6H PRN PRN Reason: Pruritis Ephedrine Sulfate (Ephedrine Sulfate) 5 mg IVPUSH ASDIRECTED PRN PRN Reason: Hypotension Fentanyl (Sublimaze) Confirm Administered Dose 100 mcg .ROUTE .STK-MED ONE Stop: 01/26/18 23:26 Last Admin: 01/26/18 23:49 Dose: Not Given Fentanyl (Sublimaze) 100 mcg EPIDUR ONETIME PRN PRN Reason: Pain Last Admin: 01/27/18 00:29 Dose: 100 mcg Fentanyl/Bupivacaine HCl (Fentanyl/Bupivacaine/Ns 2 Mcg-0.125% 100 Ml) 100 ml EPIDUR ASDIRECTED [facility] Lactated Ringer's (Ringers, Lactated) Confirm Administered Dose 1,000 mls @ as directed .ROUTE .STK-MED ONE Stop: 01/26/18 23:11 Last Admin: 01/26/18 23:49 Dose: Not Given Ampicillin Sodium 2 gm/ Sodium (Chloride) 100 mls @ 200 mls/hr IV ONETIME ONE Stop: 01/26/18 23:57 Last Admin: 01/26/18 23:15 Dose: 200 mls/hr Ampicillin Sodium 1 gm/ Sodium (Chloride) 100 mls @ 200 mls/hr IV Q4H LIZET Lactated Ringer's (Ringers, Lactated) 1,000 mls @ 100 mls/hr IV ASDIRECTED [facility] Last Admin: 01/26/18 23:55 Dose: 999 mls/hr Oxytocin/Lactated Ringer's (Pitocin In Lr 10 Units/1,000 Ml) 10 unit in 1,000 mls @ 500 mls/hr IV .CONTINUOUS LIZET Last Admin: 01/27/18 00:13 Dose: 500 mls/hr Lidocaine HCl (Xylocaine 1%) Confirm Administered Dose 50 ml .ROUTE .STK-MED ONE Stop: 01/27/18 00:10 Last Admin: 01/27/18 00:31 Dose: Not Given Lidocaine HCl (Xylocaine 1%) 10 ml INJECT ONETIME ONE Stop: 01/27/18 00:15 Last Admin: 01/27/18 00:31 Dose: 10 ml Nalbuphine HCl (Nubain) 10 mg IVPUSH Q2H PRN PRN Reason: Pain (moderate 4-6) Ondansetron HCl (Zofran) 4 mg IVPUSH Q4H PRN PRN Reason: Nausea/Vomiting Ondansetron HCl (Zofran) 4 mg IVPUSH ONETIME PRN PRN Reason: Nausea/Vomiting Sodium Chloride (Saline Flush) 10 ml FLUSH ASDIRECTED PRN PRN Reason: Keep Vein Open - Interaction Infant Disposition, : in Room with Family Interaction: Holding Infant Feeding: Breastfed ; Nursed Well Support Person: - Recovery Exam Fundal Tone: Firm Fundal Level: At Umbilicus Fundal Placement: Midline Lochia Amount: Small Lochia Color: Rubra/Red Perineum Description: Other (see below) Other Perinuem Description: 2 degree, using k pad, tucks and dermaplast Episiotomy/Laceration: Approximated Bladder Status: Voiding Urinary Elimination: Voided
[2018-01-29 10:47] VITALS: BP 121/79
== END 2018-01-29 09:05 | disposition home or self-care (01) | DRG 774 ==
LOC: JD.OBCHECK 23:07 → JD.OB 23:14 → JD.OBCHECK 23:36 → JD.OB 23:37 → OBSVTOIN 01-27 00:09
PROVIDERS: ADMIT Family Medicine; ATTEND Family Medicine
PROC: 0KQM0ZZ Repair Perineum Muscle, Open Approach (ICD-10-PCS; principal; 2018-01-27)
PROC: 10E0XZZ Delivery of Products of Conception, External Approach (ICD-10-PCS; 2018-01-27)
PROC: 00HU33Z Insertion of Infusion Device into Spinal Canal, Percutaneous Approach (ICD-10-PCS; 2018-01-27)
PROC: 3E0R3BZ Introduction of Anesthetic Agent into Spinal Canal, Percutaneous Approach (ICD-10-PCS; 2018-01-27)
DX: O42.02 Full-term premature rupture of membranes, onset of labor within 24 hours of rupture (principal); O72.1 Other immediate postpartum hemorrhage; O99.824 Streptococcus B carrier state complicating childbirth; O70.1 Second degree perineal laceration during delivery; O69.81X0 Labor and delivery complicated by cord around neck, without compression, not applicable or unspecified; O99.89 Other specified diseases and conditions complicating pregnancy, childbirth and the puerperium; R55 Syncope and collapse; Z3A.38 38 weeks gestation of pregnancy; Z37.0 Single live birth; Z88.8 Allergy status to other drugs, medicaments and biological substances
CPT/HCPCS: 01967; 36415; 59300; 59409; 85014; 85018; 85025; 85461; 86850; 86870; 86900; 86901; A9270-GY; J0290; J2590; J2790; J3010; J7030; J7120

== ENCOUNTER 2020-04-02 13:28 | Inpatient (IN) | payer OTHER ==
[2020-04-02] MEDS ORDERED: Ampicillin 2 GM in Sodium Chloride 0.9% 100 ML IV ONE (13:45)
[2020-04-02] MEDS ORDERED: Sodium Chloride 0.9% 10 ML Syringe FLUSH PRN (13:45)
[2020-04-02] MEDS ORDERED: Nalbuphine 10 MG/ML Syringe IVPUSH PRN (13:45)
[2020-04-02] MEDS ORDERED: Oxytocin/Lactated Ringers 10 UNIT/1,000 ML BAG IV SCH (13:45)
--- NOTE | 2020-04-02 13:48 | PCM.LDHP ---
L&D History of Present Illness - General Date of Service: 04/02/20 Admit Problem/Dx: Patient Status Order with Admit Dx/Problem 04/02/20 13:47 Admission Status [Patient Status] [ADT] Routine Admission Diagnosis/Problem Admission Diagnosis/Problem Normal labor Source of Information: Patient History Limitations: Reports: No Limitations - History of Present Illness Introduction:: Patient is a 30 y/o at 37 6/7 wks who presents in labor. Contractions started early this am. No bleeding or LOF. - Related Data Allergies/Adverse Reactions: Allergies Allergy/AdvReac Type Severity Reaction Status Date / Time ibuprofen Allergy Joint Verified 01/26/18 23:25 Pain/swelling Home Medications: Home Meds Loratadine [Claritin] 10 mg PO DAILY PRN 07/13/14 [History] Prenat 115/Iron Fum/Folic/Dss [ 19 Tablet] 1 each PO DAILY 07/13/14 [ History] aida Kowalski [Tucks] 1 pad TOP ASDIRECTED PRN #0 pad 03/04/16 [Rx] Acetaminophen [Tylenol] 650 mg PO Q4H PRN tablet 01/29/18 [Rx] Benzocaine/Menthol [Dermoplast Pain Relief [place]] 1 applic TOP ASDIRECTED PRN canister 01/29/18 [Rx] Docusate Sodium [Colace] 100 mg PO BID PRN cap 01/29/18 [Rx] Lanolin [Lansinoh HPA] 1 applic TOP ASDIRECTED PRN tube 01/29/18 [Rx] Past Medical History - Past Health History Medical/Surgical History: Denies 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 LMP (Approximate): Neurological History: Reports: Migraines - Infectious Disease History Infectious Disease History: Reports: Chicken Pox Social & Family History - Tobacco Use Smoking Status *Q: Never Smoker - Alcohol Use Alcohol Use History: No - Recreational Drug Use Recreational Drug Use: No - Living Situation & Occupation Living situation: Reports: H&P Review of Systems - Review of Systems: Review Of Systems: See Below General: Reports: No Symptoms Pulmonary: Reports: No Symptoms Cardiovascular: Reports: No Symptoms Gastrointestinal: Reports: No Symptoms Genitourinary: Reports: No Symptoms Musculoskeletal: Reports: No Symptoms Psychiatric: Reports: No Symptoms Neurological: Reports: No Symptoms L&D Exam - Exam Exam: See Below - OB Specific Contraction Intensity: Moderate to Strong Movement: Active Heart Tones: Present Heart Tones per Min: 135 Heart Rate (FHR) Variability: Moderate (6-25 bmp) Presentation: Vertex - Sánchez Score Sánchez Score Dilation: > 5 cm (per RN) - Exam General: Alert, Oriented, Cooperative Lungs: Clear to Auscultation, Normal Respiratory Effort Cardiovascular: Regular Rate, Regular Rhythm GI/Abdominal Exam: Soft, Non-Tender Genitourinary: Normal external exam Extremities: Normal Inspection Skin: Warm, Dry, Intact - Problem List (1) 37 weeks gestation of SNOMED Code(s): 94310717 ICD Code: Z3A.37 - 37 WEEKS GESTATION OF Status: Acute Current Visit: Yes (2) Rh negative state in antepartum period SNOMED Code(s): 426627166 ICD Code: O26.899 - OTH RELATED CONDITIONS, UNSPECIFIED TRIMESTER; Z67.91 - UNSPECIFIED BLOOD TYPE, RH NEGATIVE Status: Acute Current Visit: Yes (3) GBS (group B Streptococcus carrier), +RV culture, currently SNOMED Code(s): 4282760930017, 878694418, 8077055303502 ICD Code: O99.820 - STREPTOCOCCUS B CARRIER STATE COMPLICATING Status: Acute Current Visit: Yes (4) Normal labor SNOMED Code(s): 11112011 ICD Code: O80 - ENCOUNTER FOR FULL-TERM UNCOMPLICATED DELIVERY; Z37.9 - OUTCOME OF DELIVERY, UNSPECIFIED Status: Acute Current Visit: No Problem List Initiated/Reviewed/Updated: Yes Orders Last 24hrs: Active Orders 24 hr Category Date Time Status Admission Status [Patient Status] [ADT] Routine ADT 04/02/20 13:47 Active Activity as Tolerated [RC] PFP Care 04/02/20 13:45 Active Communication Order [RC] ASDIRECTED Care 04/02/20 13:45 Active Heart Tones [RC] ASDIRECTED Care 04/02/20 13:45 Active Non Stress Test [RC] PER UNIT ROUTINE Care 04/02/20 13:45 Active Notify Provider [RC] PFP Care 04/02/20 13:45 Active Notify Provider [RC] PRN Care 04/02/20 13:45 Active Peripheral IV Care [RC] . DIRECTED Care 04/02/20 13:45 Active Vital Signs [RC] PER UNIT ROUTINE Care 04/02/20 13:45 Active CBC W/O DIFF,HEMOGRAM [HEME] Stat Lab 04/02/20 13:45 Ordered RAPID PLASMA REAGIN,RPR [CHEM] Routine Lab 04/02/20 13:45 Ordered TYPE AND SCREEN [BBK] Stat Lab 04/02/20 13:45 Ordered Ampicillin 1 gm Med 04/02/20 13:45 Ordered Sodium Chloride 0.9% [Normal Saline] 100 ml IV Q4H Ampicillin 2 gm Med 04/02/20 13:45 Ordered Sodium Chloride 0.9% [Normal Saline] 100 ml IV ONETIME Lactated Ringers [Ringers, Lactated] 1,000 ml Med 04/02/20 13:45 Ordered IV ASDIRECTED Nalbuphine [Nubain] Med 04/02/20 13:45 Ordered 10 mg IVPUSH Q2H PRN Oxytocin/Lactated Ringers [Pitocin in LR 10 Units/1,000 Med 04/02/20 13:45 Ordered ML] 10 unit in 1,000 ml IV .CONTINUOUS Sodium Chloride 0.9% [Saline Flush] Med 04/02/20 13:45 Ordered 10 ml FLUSH ASDIRECTED PRN Electronic Heart Tones Ext w TOCO [WOMSER] Oth 04/02/20 13:45 Ordered Routine Electronic Heart Tones Internal [WOMSER] Per Unit Oth 04/02/20 13:45 Ordered Routine Peripheral IV Insertion Adult [OM.PC] Routine Oth 04/02/20 13:45 Ordered Resuscitation Status Routine Resus Stat 04/02/20 13:45 Ordered Medication Orders Ampicillin Sodium 2 gm/ Sodium (Chloride) 100 mls @ 200 mls/hr IV ONETIME ONE Stop: 04/02/20 14:14 Ampicillin Sodium 1 gm/ Sodium (Chloride) 100 mls @ 200 mls/hr IV Q4H LIZET Lactated Ringer's (Ringers, Lactated) 1,000 mls @ 100 mls/hr IV ASDIRECTED LIZET Oxytocin/Lactated Ringer's (Pitocin In Lr 10 Units/1,000 Ml) 10 unit in 1,000 mls @ 500 mls/hr IV .CONTINUOUS LIZET Nalbuphine HCl (Nubain) 10 mg IVPUSH Q2H PRN PRN Reason: Pain Sodium Chloride (Saline Flush) 10 ml FLUSH ASDIRECTED PRN PRN Reason: Keep Vein Open Assessment/Plan Comment:: * Labs ordered * GBS positive, will start Ampicillin * Pain management per patient preference * Anticipate * Assess blood type following delivery, pt Rh negative
[2020-04-02] MEDS: Lactated Ringers 1,000 ML IV SCH ×2 (13:50→14:33)
[2020-04-02] MEDS ORDERED: ePHEDrine 50 MG/ML SDV IVPUSH PRN (14:44)
[2020-04-02] MEDS ORDERED: Ondansetron 4 MG/2 ML SDV IVPUSH PRN (14:44)
[2020-04-02] MEDS ORDERED: fentaNYL 100 MCG/2 ML SDV EPIDUR PRN (14:44)
[2020-04-02] MEDS ORDERED: Bupivacaine/fentaNYL/NS 100 ML Bag EPIDUR SCH (14:45)
--- NOTE | 2020-04-02 14:49 | PCM.PREANE ---
Preanesthetic Assessment - Anesthesia/Transfusion/Family Hx Anesthesia History: Prior Anesthesia Without Reaction Family History of Anesthesia Reaction: No Transfusion History: No Prior Transfusion(s) Intubation History: Unknown - Review of Systems General: No Symptoms Pulmonary: No Symptoms Cardiovascular: No Symptoms Gastrointestinal: No Symptoms Neurological: No Symptoms, Headache (migraines) Other: Reports: None - Physical Assessment NPO Status Date: 04/02/20 NPO Status Time: 11:30 Vital Signs: HR:77 BP:120/76 SAT:99 Temp: Resp:20 Height: 1.65 m Weight: 66.678 kg ASA Class: 2 Mental Status: Alert & Oriented x3 Airway Class: Mallampati = 2 Dentition: Reports: Normal Dentition, Caries Thyro-Mental Finger Breadths: 3 Mouth Opening Finger Breadths: 3 ROM/Head Extension: Full Lungs: Clear to Auscultation, Normal Respiratory Effort Cardiovascular: Regular Rate, Regular Rhythm, No Murmurs - Lab Values: Laboratory Last Values WBC 9.16 K/mm3 (3.98-10.04) 04/02/20 14:20 RBC 3.60 M/mm3 (3.98-5.22) L 04/02/20 14:20 Hgb 11.3 gm/dl (11.2-15.7) 04/02/20 14:20 Hct 33.7 % (34.1-44.9) L 04/02/20 14:20 MCV 93.6 fl (79.4-94.8) 04/02/20 14:20 MCH 31.4 pg (25.6-32.2) 04/02/20 14:20 MCHC 33.5 g/dl (32.2-35.5) 04/02/20 14:20 RDW Std Deviation 40.7 fL (36.4-46.3) 04/02/20 14:20 Plt Count 167 K/mm3 (182-369) L 04/02/20 14:20 MPV 10.7 fl (9.4-12.3) 04/02/20 14:20 Above labs reviewed and noted and within acceptable ranges to proceed with epidural. - Allergies Allergies/Adverse Reactions: Allergies Allergy/AdvReac Type Severity Reaction Status Date / Time ibuprofen Allergy Joint Verified 01/26/18 23:25 Pain/swelling - Anesthesia Plan Pre-Op Medication Ordered: None - Acknowledgements Anesthesia Type Planned: Epidural Pt an Appropriate Candidate for the Planned Anesthesia: Yes Alternatives and Risks of Anesthesia Discussed w Pt/Guardian: Yes Pt/Guardian Understands and Agrees with Anesthesia Plan: Yes PreAnesthesia Questionnaire - Past Health History Medical/Surgical History: Denies Medical/Surgical History Respiratory History: Reports: Asthma, Other (See Below) Other Respiratory History: pt states she has a hx of asthma but has not used an inhaler for years 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: Neurological History: Reports: Migraines Other Neuro History: quit propranalol 1 week ago - Infectious Disease History Infectious Disease History: Reports: Chicken Pox - SUBSTANCE USE Smoking Status *Q: Never Smoker Recreational Drug Use History: No - HOME MEDS Home Medications: Home Meds Prenat 115/Iron Fum/Folic/Dss [ 19 Tablet] 1 each PO DAILY 07/13/14 [ History] Acetaminophen [Tylenol] 650 mg PO Q4H PRN tablet 01/29/18 [Rx] Propranolol [Inderal LA 24 Hr] 80 mg PO DAILY 04/02/20 [History] - CURRENT (IN HOUSE) MEDS Current Meds: Current Medications Ampicillin Sodium 1 gm/ Sodium (Chloride) 100 mls @ 200 mls/hr IV Q4H LIZET Lactated Ringer's (Ringers, Lactated) 1,000 mls @ 100 mls/hr IV ASDIRECTED LIZET Last Admin: 04/02/20 14:33 Dose: 100 mls/hr Oxytocin/Lactated Ringer's (Pitocin In Lr 10 Units/1,000 Ml) 10 unit in 1,000 mls @ 500 mls/hr IV .CONTINUOUS LIZET Nalbuphine HCl (Nubain) 10 mg IVPUSH Q2H PRN PRN Reason: Pain Sodium Chloride (Saline Flush) 10 ml FLUSH ASDIRECTED PRN PRN Reason: Keep Vein Open Discontinued Medications Ampicillin Sodium 2 gm/ Sodium (Chloride) 100 mls @ 200 mls/hr IV ONETIME ONE Stop: 04/02/20 14:14 Last Admin: 04/02/20 13:50 Dose: 200 mls/hr
--- NOTE | 2020-04-02 17:34 | PCM.DEL ---
L & D Note - General Info Date of Service: 04/02/20 - Delivery Note Labor: Spontaneous Delivery Outcome: Livebirth Delivery Method: Spontaneous Vaginal Delivery-Single Delivery Mode: Spontaneous Presentation: Left Occiput Anterior (LEELEE) Nuchal Cord: None Anesthesia Type: Epidural Amniotic Fluid Description: Clear Episiotomy Type: None Laceration: 1st Degree, Labial, Vaginal Suture type: Vicryl Suture size: 2-0 Placenta: Intact, Spontaneous Cord: 3 Vessels Estimated Blood Loss: 100 : Bulb Syringe, Stimulated, Warmed, [place] Used, Warmer Used Delivery Comments (Free Text/Narrative):: Patient found to be complete and began pushing. With maternal pushing effort head delivered from an LEELEE presentation No nuchal cord present. With gentle downward traction shoulders and body delivered. Infant placed on maternal abdomen. Cord clamped and cut. Cord blood obtained. Placenta allowed time to separate and expelled intact. Inspection of the perineum showed a small laceration on the right labia which was repaired with an interrupted suture of 2-0 vicryl and a small 1st degree on the vaginal mucosa which was also repaired with a 2-0 vicryl in an interrupted fashion - General Info Date of Service: 04/02/20 - Patient Data Vitals - Most Recent: Last Vital Signs Temp 36.6 C 04/02/20 13:45 Pulse 55 L 04/02/20 16:00 Resp 14 04/02/20 13:45 BP 117/64 04/02/20 16:00 Pulse Ox 100 04/02/20 15:02 Weight - Most Recent: 66.678 kg Lab Results Last 24 Hours: Laboratory Results - last 24 hr 04/02/20 Range/Units 14:20 WBC 9.16 (3.98-10.04) K/mm3 RBC 3.60 L (3.98-5.22) M/mm3 Hgb 11.3 (11.2-15.7) gm/dl Hct 33.7 L (34.1-44.9) % MCV 93.6 (79.4-94.8) fl MCH 31.4 (25.6-32.2) pg MCHC 33.5 (32.2-35.5) g/dl RDW Std Deviation 40.7 (36.4-46.3) fL Plt Count 167 L (182-369) K/mm3 MPV 10.7 (9.4-12.3) fl Med Orders - Current: Current Medications Ephedrine Sulfate (Ephedrine Sulfate) 5 mg IVPUSH ASDIRECTED PRN PRN Reason: Hypotension Fentanyl (Sublimaze) 100 mcg EPIDUR Q3H PRN PRN Reason: Pain Last Admin: 04/02/20 15:03 Dose: 100 mcg Fentanyl/Bupivacaine HCl (Fentanyl/Bupivacaine/Ns 2 Mcg-0.125% 100 Ml) 100 ml EPIDUR ASDIRECTED LIZET Last Admin: 04/02/20 15:03 Dose: 100 ml Ampicillin Sodium 1 gm/ Sodium (Chloride) 100 mls @ 200 mls/hr IV Q4H LIZET Lactated Ringer's (Ringers, Lactated) 1,000 mls @ 100 mls/hr IV ASDIRECTED LIZET Last Admin: 04/02/20 14:33 Dose: 100 mls/hr Oxytocin/Lactated Ringer's (Pitocin In Lr 10 Units/1,000 Ml) 10 unit in 1,000 mls @ 500 mls/hr IV .CONTINUOUS LIZET Nalbuphine HCl (Nubain) 10 mg IVPUSH Q2H PRN PRN Reason: Pain Ondansetron HCl (Zofran) 4 mg IVPUSH ONETIME PRN PRN Reason: Nausea/Vomiting Sodium Chloride (Saline Flush) 10 ml FLUSH ASDIRECTED PRN PRN Reason: Keep Vein Open Discontinued Medications Ampicillin Sodium 2 gm/ Sodium (Chloride) 100 mls @ 200 mls/hr IV ONETIME ONE Stop: 04/02/20 14:14 Last Admin: 04/02/20 13:50 Dose: 200 mls/hr - Problem List & Annotations (1) 37 weeks gestation of SNOMED Code(s): 22172473 Code(s): Z3A.37 - 37 WEEKS GESTATION OF Status: Acute Current Visit: Yes (2) Rh negative state in antepartum period SNOMED Code(s): 756891635 Code(s): O26.899 - OTH RELATED CONDITIONS, UNSPECIFIED TRIMESTER; Z67.91 - UNSPECIFIED BLOOD TYPE, RH NEGATIVE Status: Acute Current Visit: Yes (3) GBS (group B Streptococcus carrier), +RV culture, currently SNOMED Code(s): 6323928277401, 519116448, 5552931258869 Code(s): O99.820 - STREPTOCOCCUS B CARRIER STATE COMPLICATING Status: Acute Current Visit: Yes (4) Normal labor SNOMED Code(s): 43923508 Code(s): O80 - ENCOUNTER FOR FULL-TERM UNCOMPLICATED DELIVERY; Z37.9 - OUTCOME OF DELIVERY, UNSPECIFIED Status: Acute Current Visit: No (5) Vaginal delivery SNOMED Code(s): 568737075 Code(s): O80 - ENCOUNTER FOR FULL-TERM UNCOMPLICATED DELIVERY Status: Acute Current Visit: No - Problem List Review Problem List Initiated/Reviewed/Updated: Yes - My Orders Last 24 Hours: My Active Orders 04/02/20 13:45 Activity as Tolerated [RC] PFP Communication Order [RC] ASDIRECTED Notify Provider [RC] PRN Peripheral IV Care [RC] Q2HR Vital Signs [RC] PER UNIT ROUTINE Lactated Ringers [Ringers, Lactated] 1,000 ml IV ASDIRECTED Nalbuphine [Nubain] 10 mg IVPUSH Q2H PRN Oxytocin/Lactated Ringers [Pitocin in LR 10 Units/1,000 ML] 10 unit in 1,000 ml IV .CONTINUOUS Sodium Chloride 0.9% [Saline Flush] 10 ml FLUSH ASDIRECTED PRN Electronic Heart Tones Ext w TOCO [WOMSER] Routine Electronic Heart Tones Internal [WOMSER] Per Unit Routine Peripheral IV Insertion Adult [OM.PC] Routine Resuscitation Status Routine 04/02/20 13:47 Admission Status [Patient Status] [ADT] Routine 04/02/20 14:20 RAPID PLASMA REAGIN,RPR [CHEM] Routine TYPE AND SCREEN [BBK] Stat 04/02/20 18:00 Ampicillin 1 gm Sodium Chloride 0.9% [Normal Saline] 100 ml IV Q4H - Assessment Assessment:: PPD#0 - Plan Plan:: * Routine cares * Breast feeding * Assess blood type following delivery, pt Rh negative * Discharge home in 1-2 days
[2020-04-02] MEDS ORDERED: Benzocaine/Menthol 20%-0.5% Spray 56 GM Canister TOP PRN (17:47)
[2020-04-02] MEDS ORDERED: Docusate Sodium 100 MG Cap PO PRN (17:47)
[2020-04-02] MEDS ORDERED: Ibuprofen 600 MG Tab PO PRN (17:47)
[2020-04-02] MEDS ORDERED: Witch Hazel Medicated Pads 40/Jar TOP PRN (17:47)
[2020-04-02] MEDS ORDERED: Ampicillin 1 GM in Sodium Chloride 0.9% 100 ML IV SCH (18:00)
[2020-04-02] MEDS: Acetaminophen 325 MG Tab PO PRN (20:13)
[2020-04-03] MEDS ORDERED: Bupivacaine 0.25% 10 ML SDV ONE
[2020-04-03] MEDS: Acetaminophen 325 MG Tab PO PRN ×4 (00:05→14:50)
--- NOTE | 2020-04-03 07:42 | PCM.PNPP ---
- General Info Date of Service: 04/03/20 Functional Status: Reports: Pain Controlled, Tolerating Diet, Ambulating, Urinating - Review of Systems General: Reports: No Symptoms Pulmonary: Reports: No Symptoms Cardiovascular: Reports: No Symptoms Gastrointestinal: Reports: No Symptoms Genitourinary: Reports: No Symptoms Musculoskeletal: Reports: No Symptoms Neurological: Reports: No Symptoms - Patient Data Vital Signs - Most Recent: Last Vital Signs Temp 36.6 C 04/03/20 03:00 Pulse 50 L 04/03/20 03:00 Resp 16 04/03/20 03:00 BP 127/80 04/03/20 03:00 Pulse Ox 96 04/03/20 03:00 Weight - Most Recent: 66.678 kg I&O - Last 24 Hours: Intake & Output 04/02/20 04/03/20 04/03/20 22:59 06:59 14:59 Intake Total 120 Balance 120 Lab Results - Last 24 Hours: Laboratory Results - last 24 hr 04/02/20 04/02/20 04/02/20 Range/Units 14:20 14:20 14:20 WBC 9.16 (3.98-10.04) K/mm3 RBC 3.60 L (3.98-5.22) M/mm3 Hgb 11.3 (11.2-15.7) gm/dl Hct 33.7 L (34.1-44.9) % MCV 93.6 (79.4-94.8) fl MCH 31.4 (25.6-32.2) pg MCHC 33.5 (32.2-35.5) g/dl RDW Std Deviation 40.7 (36.4-46.3) fL Plt Count 167 L (182-369) K/mm3 MPV 10.7 (9.4-12.3) fl RPR Non-reactive (NONREACTIVE) Blood Type B NEGATIVE Gel Antibody Screen Positive Med Orders - Current: Current Medications Acetaminophen (Tylenol) 650 mg PO Q4H PRN PRN Reason: mild pain or fever Last Admin: 04/03/20 05:29 Dose: 650 mg Benzocaine/Menthol (Dermoplast Pain Relief [place]) 0 gm TOP ASDIRECTED PRN PRN Reason: Perineal Comfort Measure Last Admin: 04/02/20 20:14 Dose: 1 can Docusate Sodium (Colace) 100 mg PO BID PRN PRN Reason: Constipation Witch Dex (Tucks) 1 pad TOP ASDIRECTED PRN PRN Reason: Perineal Comfort Measure Last Admin: 04/02/20 20:15 Dose: 1 can Discontinued Medications Ephedrine Sulfate (Ephedrine Sulfate) 5 mg IVPUSH ASDIRECTED PRN PRN Reason: Hypotension Fentanyl (Sublimaze) 100 mcg EPIDUR Q3H PRN PRN Reason: Pain Last Admin: 04/02/20 15:03 Dose: 100 mcg Fentanyl/Bupivacaine HCl (Fentanyl/Bupivacaine/Ns 2 Mcg-0.125% 100 Ml) 100 ml EPIDUR ASDIRECTED LIZET Last Admin: 04/02/20 15:03 Dose: 100 ml Ampicillin Sodium 2 gm/ Sodium (Chloride) 100 mls @ 200 mls/hr IV ONETIME ONE Stop: 04/02/20 14:14 Last Admin: 04/02/20 13:50 Dose: 200 mls/hr Ampicillin Sodium 1 gm/ Sodium (Chloride) 100 mls @ 200 mls/hr IV Q4H LIZET Lactated Ringer's (Ringers, Lactated) 1,000 mls @ 100 mls/hr IV ASDIRECTED LIZET Last Admin: 04/02/20 14:33 Dose: 100 mls/hr Oxytocin/Lactated Ringer's (Pitocin In Lr 10 Units/1,000 Ml) 10 unit in 1,000 mls @ 500 mls/hr IV .CONTINUOUS [facility] Ibuprofen (Motrin) 600 mg PO Q6H PRN PRN Reason: Mild pain or fever Nalbuphine HCl (Nubain) 10 mg IVPUSH Q2H PRN PRN Reason: Pain Ondansetron HCl (Zofran) 4 mg IVPUSH ONETIME PRN PRN Reason: Nausea/Vomiting Sodium Chloride (Saline Flush) 10 ml FLUSH ASDIRECTED PRN PRN Reason: Keep Vein Open - Infant Interaction Disposition, : in Room with Family Interaction: Holding Feeding: Breastfed ; Nursed Well Support Person: - Recovery Exam Fundal Tone: Firm Fundal Level: 1 Fingerbreadths Below Umbilicus Fundal Placement: Midline Lochia Amount: Small Lochia Color: Rubra/Red Perineum Description: Intact, Minimal Bruising/Swelling Episiotomy/Laceration: Approximated Bladder Status: Voiding Urinary Elimination: Voided - Exam General: Alert, Oriented, Cooperative GI/Abdominal Exam: Soft, Non-Tender Extremities: Normal Inspection Skin: Warm, Dry, Intact - Problem List & Annotations (1) 37 weeks gestation of SNOMED Code(s): 47800182 Code(s): Z3A.37 - 37 WEEKS GESTATION OF Status: Acute Current Visit: Yes (2) Rh negative state in antepartum period SNOMED Code(s): 258458464 Code(s): O26.899 - OTH RELATED CONDITIONS, UNSPECIFIED TRIMESTER; Z67.91 - UNSPECIFIED BLOOD TYPE, RH NEGATIVE Status: Acute Current Visit: Yes (3) GBS (group B Streptococcus carrier), +RV culture, currently SNOMED Code(s): 3445041064942, 414186155, 0047921386793 Code(s): O99.820 - STREPTOCOCCUS B CARRIER STATE COMPLICATING Status: Acute Current Visit: Yes (4) Normal labor SNOMED Code(s): 25681192 Code(s): O80 - ENCOUNTER FOR FULL-TERM UNCOMPLICATED DELIVERY; Z37.9 - OUTCOME OF DELIVERY, UNSPECIFIED Status: Acute Current Visit: No (5) Vaginal delivery SNOMED Code(s): 973249007 Code(s): O80 - ENCOUNTER FOR FULL-TERM UNCOMPLICATED DELIVERY Status: Acute Current Visit: No - Problem List Review Problem List Initiated/Reviewed/Updated: Yes - My Orders Last 24 Hours: My Active Orders 04/02/20 13:45 Peripheral IV Care [RC] Q2HR Resuscitation Status Routine 04/02/20 14:20 ANTIBODY IDENTIFICATION [BBK] Stat TYPE AND SCREEN [BBK] Stat 04/02/20 17:47 Activity as Tolerated [RC] PER UNIT ROUTINE Vital Signs [RC] 03,09,15,21 Acetaminophen [Tylenol] 650 mg PO Q4H PRN Benzocaine/Menthol [Dermoplast Pain Relief [place]] See Dose Instructions TOP ASDIRECTED PRN Docusate Sodium [Colace] 100 mg PO BID PRN witch Dex [Tucks] 1 pad TOP ASDIRECTED PRN Assess Lochia [WOMSER] Per Unit Routine Assess Uterine Involution [WOMSER] Per Unit Routine Breast Pump [WOMSER] Per Unit Routine Heat Therapy [OM.PC] PRN Ice Therapy [OM.PC] Per Unit Routine Perineal Care [OM.PC] Per Unit Routine Peripheral IV Discontinue [OM.PC] Routine Sitz Bath [OM.PC] Per Unit Routine 04/02/20 Dinner Regular Diet [DIET] 04/03/20 17:47 Heat Therapy [OM.PC] PRN - Assessment Assessment:: PPD#1 - Plan Plan:: * Routine cares * Breast feeding * Baby Rh negative, no need for Rhogam * Discharge home today vs tomorrow depending upon Insole And Outsole Splitter preference
--- NOTE | 2020-04-03 11:01 | PCM.DCSUM1 ---
Discharge Summary - Discharge Data Discharge Date: 04/03/20 Discharge Disposition: Home, Self-Care 01 Condition: Good - Referral to Home Health Primary Care Physician: Radha Cunningham MD - Discharge Diagnosis/Problem(s) (1) 37 weeks gestation of SNOMED Code(s): 74159131 ICD Code: Z3A.37 - 37 WEEKS GESTATION OF Status: Acute Current Visit: Yes (2) Rh negative state in antepartum period SNOMED Code(s): 827890013 ICD Code: O26.899 - OTH RELATED CONDITIONS, UNSPECIFIED TRIMESTER; Z67.91 - UNSPECIFIED BLOOD TYPE, RH NEGATIVE Status: Acute Current Visit: Yes (3) GBS (group B Streptococcus carrier), +RV culture, currently SNOMED Code(s): 2238506389111, 228389129, 5928770393956 ICD Code: O99.820 - STREPTOCOCCUS B CARRIER STATE COMPLICATING Status: Acute Current Visit: Yes (4) Normal labor SNOMED Code(s): 95209698 ICD Code: O80 - ENCOUNTER FOR FULL-TERM UNCOMPLICATED DELIVERY; Z37.9 - OUTCOME OF DELIVERY, UNSPECIFIED Status: Acute Current Visit: No (5) Vaginal delivery SNOMED Code(s): 603767303 ICD Code: O80 - ENCOUNTER FOR FULL-TERM UNCOMPLICATED DELIVERY Status: Acute Current Visit: No - Patient Summary/Data Complications: None Consults: None Recommended Follow-up Testing/Procedures: Follow up in 3 weeks for check - can be telehealth Hospital Course: 30 y/o at 37 6/7 wks presented in labor. She progressed well without augmentation and underwent an uncomplicated . See delivery note. she did well and was discharged home on PPD#1 - Patient Instructions Diet: Regular Diet as Tolerated Activity: As Tolerated Activity, Other: Pelvic rest for 6 weeks Driving: May Drive Today Showering/Bathing: May Shower Showering/Bathing, Other: May bathe Notify Provider of: Fever, Increased Pain, Swelling and Redness, Drainage, Nausea and/or Vomiting - Discharge Plan *PRESCRIPTION DRUG MONITORING PROGRAM REVIEWED*: No *COPY OF PRESCRIPTION DRUG MONITORING REPORT IN PATIENT JANE: No Home Medications: Home Meds Prenat 115/Iron Fum/Folic/Dss [ 19 Tablet] 1 each PO DAILY 07/13/14 [ History] Acetaminophen [Tylenol] 650 mg PO Q4H PRN tablet 01/29/18 [Rx] Propranolol [Inderal LA] 80 mg PO DAILY 04/02/20 [History] Referrals: Radha Cunningham MD [Primary Care Provider] - (3 weeks for check ) - Discharge Summary/Plan Comment DC Time >30 min.: No - Patient Data Vitals - Most Recent: Last Vital Signs Temp 36.7 C 04/03/20 09:00 Pulse 75 04/03/20 09:00 Resp 16 04/03/20 09:00 BP 122/69 04/03/20 09:00 Pulse Ox 97 04/03/20 09:00 Weight - Most Recent: 66.678 kg I&O - Last 24 hours: Intake & Output 04/02/20 04/03/20 04/03/20 22:59 06:59 14:59 Intake Total 120 120 Balance 120 120 Lab Results - Last 24 hrs: Laboratory Results - last 24 hr 04/02/20 04/02/20 04/02/20 Range/Units 14:20 14:20 14:20 WBC 9.16 (3.98-10.04) K/mm3 RBC 3.60 L (3.98-5.22) M/mm3 Hgb 11.3 (11.2-15.7) gm/dl Hct 33.7 L (34.1-44.9) % MCV 93.6 (79.4-94.8) fl MCH 31.4 (25.6-32.2) pg MCHC 33.5 (32.2-35.5) g/dl RDW Std Deviation 40.7 (36.4-46.3) fL Plt Count 167 L (182-369) K/mm3 MPV 10.7 (9.4-12.3) fl RPR Non-reactive (NONREACTIVE) Blood Type B NEGATIVE Gel Antibody Screen Positive Med Orders - Current: Current Medications Acetaminophen (Tylenol) 650 mg PO Q4H PRN PRN Reason: mild pain or fever Last Admin: 04/03/20 10:17 Dose: 650 mg Benzocaine/Menthol (Dermoplast Pain Relief [place]) 0 gm TOP ASDIRECTED PRN PRN Reason: Perineal Comfort Measure Last Admin: 04/02/20 20:14 Dose: 1 can Docusate Sodium (Colace) 100 mg PO BID PRN PRN Reason: Constipation Witch Ciara (Tucks) 1 pad TOP ASDIRECTED PRN PRN Reason: Perineal Comfort Measure Last Admin: 04/02/20 20:15 Dose: 1 can Discontinued Medications Ephedrine Sulfate (Ephedrine Sulfate) 5 mg IVPUSH ASDIRECTED PRN PRN Reason: Hypotension Fentanyl (Sublimaze) 100 mcg EPIDUR Q3H PRN PRN Reason: Pain Last Admin: 04/02/20 15:03 Dose: 100 mcg Fentanyl/Bupivacaine HCl (Fentanyl/Bupivacaine/Ns 2 Mcg-0.125% 100 Ml) 100 ml EPIDUR ASDIRECTED LIZET Last Admin: 04/02/20 15:03 Dose: 100 ml Ampicillin Sodium 2 gm/ Sodium (Chloride) 100 mls @ 200 mls/hr IV ONETIME ONE Stop: 04/02/20 14:14 Last Admin: 04/02/20 13:50 Dose: 200 mls/hr Ampicillin Sodium 1 gm/ Sodium (Chloride) 100 mls @ 200 mls/hr IV Q4H LIZET Lactated Ringer's (Ringers, Lactated) 1,000 mls @ 100 mls/hr IV ASDIRECTED [facility] Last Admin: 04/02/20 14:33 Dose: 100 mls/hr Oxytocin/Lactated Ringer's (Pitocin In Lr 10 Units/1,000 Ml) 10 unit in 1,000 mls @ 500 mls/hr IV .CONTINUOUS [facility] Ibuprofen (Motrin) 600 mg PO Q6H PRN PRN Reason: Mild pain or fever Nalbuphine HCl (Nubain) 10 mg IVPUSH Q2H PRN PRN Reason: Pain Ondansetron HCl (Zofran) 4 mg IVPUSH ONETIME PRN PRN Reason: Nausea/Vomiting Sodium Chloride (Saline Flush) 10 ml FLUSH ASDIRECTED PRN PRN Reason: Keep Vein Open
[2020-04-03 17:09] VITALS: BP 123/72; PULSE 57
== END 2020-04-03 18:00 | disposition home or self-care (01) | DRG 807 ==
LOC: JD.OB 13:28 → JD.OBCHECK 13:28 → UNDOADMOB 13:47 → JD.OBCHECK 13:47 → JD.OB 13:47 → OBSVTOIN 17:21 → INTOOBSV 17:21 → JD.MS 17:22 → JD.OB 17:22 → OBSVTOIN 17:34 → INTOOBSV 17:34 → JD.OB 23:00 → JD.MS 23:00 → JD.OB 23:00 → OBSVTOIN 23:00 → JD.OB 23:01
PROVIDERS: ADMIT Obstetrics & Gynecology; ATTEND Obstetrics & Gynecology
PROC: 10E0XZZ Delivery of Products of Conception, External Approach (ICD-10-PCS; principal; 2020-04-02)
PROC: 0HQ9XZZ Repair Perineum Skin, External Approach (ICD-10-PCS; 2020-04-02)
DX: O99.824 Streptococcus B carrier state complicating childbirth (principal); Z37.0 Single live birth; Z3A.37 37 weeks gestation of pregnancy; O70.0 First degree perineal laceration during delivery; O26.893 Other specified pregnancy related conditions, third trimester; Z67.91 Unspecified blood type, Rh negative
CPT/HCPCS: 01967; 36415; 51702; 59025; 59409; 85027; 86592; 86850; 86870; 86900; 86901; A9270-GY; J0290; J3010; J3490; J7050; J7120

== ENCOUNTER 2024-10-27 06:06 | Inpatient (IN) | payer OTHER ==
[~2024-10-27 06:06] MED LIST changes: -Bupivacaine 0.25% 10 ML SDV ONE; +Ropivacaine 0.2% PF 2 MG/ML 20 ML SDV ONE
[2024-10-27] MEDS ORDERED: Lidocaine 1% 50 ML MDV INJECT PRN (06:37)
[2024-10-27] MEDS ORDERED: Nalbuphine 10 MG/1 ML Vial IVPUSH PRN (06:37)
[2024-10-27] MEDS ORDERED: Sodium Chloride 0.9% 10 ML Syringe FLUSH PRN (06:37)
[2024-10-27] MEDS: Lactated Ringers 1,000 ML IV SCH (06:57)
[2024-10-27] MEDS: Ampicillin 2 GM in Sodium Chloride 0.9% 100 ML IV ONE (06:57)
[2024-10-27] MEDS ORDERED: diphenhydrAMINE 50 MG/ML SDV IVPUSH PRN (07:07)
[2024-10-27] MEDS ORDERED: ePHEDrine 50 MG/ML SDV IVPUSH PRN (07:07)
[2024-10-27 07:11] LABS: BASOPHILS PERCENT AUTO 0.3 % (0.0-1.0); EOSINOPHILS ABSOLUTE AUTO 0.1 K/mm3 (0.0-0.4); EOSINOPHILS PERCENT AUTO 0.5 % (0.0-6.0); HEMOGLOBIN 12.7 gm/dl (12.0-16.0); IMMATURE GRAN ABSOLUTE AUTO 0.07 K/mm3 (0.00-0.05); IMMATURE GRAN PERCENT AUTO 0.5 % (0.0-0.4); LYMPHOCYTES ABSOLUTE AUTO 2.4 K/mm3 (1.0-4.8); LYMPHOCYTES PERCENT AUTO 16.5 % (24.0-44.0); MEAN CORPUSCULAR HEMOGLOBIN 30.7 pg (28.0-32.0); MEAN CORPUSCULAR HGB CONC 34.3 g/dl (32.0-36.0); MEAN CORPUSCULAR VOLUME 89.4 fl (83.0-99.0); MEAN PLATELET VOLUME 10.4 fl (9.4-12.3); MONOCYTES ABSOLUTE AUTO 0.9 K/mm3 (0.0-0.8); MONOCYTES PERCENT AUTO 6.1 % (0.0-8.0); NEUTROPHILS ABSOLUTE AUTO 11.1 K/mm3 (1.8-7.7); NEUTROPHILS PERCENT AUTO 76.1 % (41.0-71.0); PLATELET COUNT,PLT 195 K/mm3 (150-400); RED BLOOD CELL COUNT 4.14 M/mm3 (4.10-5.30); WHITE BLOOD CELL COUNT,WBC 14.54 K/mm3 (3.9-11.3)
[2024-10-27] MEDS: Ondansetron 4 MG/2 ML SDV IVPUSH PRN (07:14)
[2024-10-27] MEDS: fentaNYL 100 MCG/2 ML SDV EPIDUR PRN (07:15)
[2024-10-27] MEDS: Bupivacaine/fentaNYL/NS 100 ML Bag EPIDUR PRN (07:15)
[2024-10-27] MEDS: Oxytocin/0.9 % Sodium Chloride 30 UNIT/500 ML BAG IV SCH (09:28)
[2024-10-27] MEDS: Sodium Chloride 0.9% 10 ML Syringe FLUSH SCH (09:28)
[2024-10-27] MEDS ORDERED: Docusate Sodium 100 MG Cap PO PRN (10:13)
[2024-10-27] MEDS: Acetaminophen 325 MG Tab PO PRN (10:36)
[2024-10-27] MEDS: Witch Hazel Medicated Pads 40/Jar TOP PRN (10:59)
[2024-10-27] MEDS ORDERED: Ampicillin 1 GM in Sodium Chloride 0.9% 100 ML IV SCH (11:00)
[2024-10-27] MEDS: Benzocaine/Menthol 20%-0.5% Spray 78 GM Cannister TOP PRN (11:00)
[2024-10-27] MEDS: Propranolol 80 MG Cap.ER PO SCH (20:07)
[2024-10-29 10:16] VITALS: BP 111/81; PULSE 80
== END 2024-10-29 09:50 | disposition home or self-care (01) | DRG 807 ==
LOC: JD.OBCHECK 06:06 → JD.OB 06:10 → JD.OBCHECK 06:51 → JD.OB 06:51 → OBSVTOIN 09:30 → JD.OB 09:31
PROVIDERS: ADMIT Obstetrics & Gynecology; ATTEND Obstetrics & Gynecology
PROC: 10E0XZZ Delivery of Products of Conception, External Approach (ICD-10-PCS; principal; 2024-10-27)
PROC: 0HQ9XZZ Repair Perineum Skin, External Approach (ICD-10-PCS; 2024-10-27)
PROC: 3E0R3BZ Introduction of Anesthetic Agent into Spinal Canal, Percutaneous Approach (ICD-10-PCS; 2024-10-27)
PROC: 00HU33Z Insertion of Infusion Device into Spinal Canal, Percutaneous Approach (ICD-10-PCS; 2024-10-27)
PROC: 3E0334Z Introduction of Serum, Toxoid and Vaccine into Peripheral Vein, Percutaneous Approach (ICD-10-PCS; 2024-10-27)
DX: O34.219 Maternal care for unspecified type scar from previous cesarean delivery (principal); Z37.0 Single live birth; O99.824 Streptococcus B carrier state complicating childbirth; O26.893 Other specified pregnancy related conditions, third trimester; O70.0 First degree perineal laceration during delivery; Z3A.38 38 weeks gestation of pregnancy; Z67.21 Type B blood, Rh negative
CPT/HCPCS: 01967; 36415; 36430; 51701; 59025; 59409; 85025; 85461; 86592; 86850; 86870; 86900; 86901; A9270-GY; C1758; J0290; J2405; J2791; J2795; J3010; J3490; J7120; J7999